=== PATIENT | male | born 1955 | race Caucasian/White ===

== ENCOUNTER 2018-10-20 09:23 | Inpatient (IN) ==
--- NOTE | 2018-08-26 15:22 | PAT Medication Instructions ---
Medication Instructions Date of Service August 26, 2018 Home Medications atorvastatin 10 mg PO QAM carvedilol 6.25 mg PO QAM lisinopril 5 mg PO QAM metformin 1,000 mg PO QAM DO NOT take the morning of surgery lisinopril 5 mg PO QAM metformin 1,000 mg PO QAM Take morning of surgery With a small sip of water, OTHERWISE NOTHING TO EAT OR DRINK AFTER MIDNIGHT: atorvastatin 10 mg PO QAM carvedilol 6.25 mg PO QAM Other Notes If you have any questions please call us at [phone] or [phone] or [phone] or [phone]
--- NOTE | 2018-08-27 13:59 | Anesthesiology Consultation ---
Date of Service August 27, 2018 Assessment & Plan (1) Encounter for pre-operative examination: Plan: CHECK BSG AM DOS Chart Review Chart Review: Acceptable Risk for Surgery and Patient seen in Pre Admission Testing Teaching & Discussion Instructed NPO after midnight before surgery, except medications with 15 cc of water. Medication instructions provided according to the PAT guidelines. History Surgery Operation Date: 10/20/18 10:40 Proposed Procedures p Right Total Shoulder Arthroplasty versus [place] Total Shoulder Arthroplasty - Soren Hernandez MD Height/Weight Height: 5 ft 10 in Weight: 119.3 kg Allergies Allergy/AdvReac Type Severity Reaction Status Date / Time No Known Allergies Allergy Verified 08/19/18 11:14 Medications Home Medications Medication Instructions Recorded Confirmed Last Taken atorvastatin 10 mg PO QAM 08/19/18 08/19/18 Unknown carvedilol 6.25 mg PO QAM 08/19/18 08/19/18 Unknown lisinopril 5 mg PO QAM 08/19/18 08/19/18 Unknown metformin 1,000 mg PO QAM 08/19/18 08/19/18 Unknown Past Medical History Medical History Diabetes mellitus, type 2 NIDDM H/O methicillin resistant Staphylococcus aureus Per patient was cleared via nasal swabs [address] [facility], infection control made aware. Hearing deficit Hyperlipidemia Hypertension Obesity Past Family History Family History Mother Family history of diabetes mellitus Past Surgical History Surgical History History of amputation of finger of left hand History of ankle surgery RT History of appendectomy History of cardiac cath 2008 - [facility] - failed stress test - no stents/angioplasty - does not follow w/ cardiology at present (last saw dr. bloom 4 years ago) History of repair of rotator cuff RT History of tonsillectomy History of total knee replacement BL Past Anesthesia History No Hx of Anesthesia Complications and No Family Hx of Anesthesia Complications History of PONV No Motion Sickness Screening History of Motion Sickness: No Social History Smoking Status: Never smoker Do You Dip or Chew Tobacco: No (quit 1 1/2 years ago) Hx Alcohol Use: Yes Alcohol type: beer alcohol intake frequency: a few times a month Hx Substance Use: No substance use type: does not use Exercise / Class Metabolic Activity II 4-5 Yardwork/Stairs/Walk up hill (Denies CP or SOB with stairs, does frequently at home) Review of Systems Pt denies any recent chest pain, shortness of breath, palpitations, cough, fever or URI. Physical Exam Vital Signs BP: 126/82 P: 72bpm SPO2: 93% RA T: 98.0 R: 12 ENMT Mouth: + dentures (partial upper); no dental restorations, no chipped teeth and no loose teeth Thyromental Distance: > or= 3.5 Finger Breadths (3.5) Mallampati Class: III Neck + thick neck; neck extension not limited Respiratory normal respiratory effort Auscultation: lungs clear to auscultation bilaterally Cardiovascular Rate/Rhythm: regular rate and regular rhythm Heart Sounds: no murmur Vessels: no carotid bruit Testing Electrocardiogram Date: 08/27/18 Findings: + NSR @ (73) SR with PACs, otherwise normal. Chest X-Ray Date: 08/27/18 Findings: + NAD Laboratory Results 08/27/18 14:10 08/27/18 14:10 Blood Type A Positive 08/27/18 14:10 Antibody Screen NEGATIVE 08/27/18 14:10 PT 10.6 Seconds (9.0-12.0) 08/27/18 14:10 INR 1.1 (0.9-1.1) 08/27/18 14:10 APTT 27.1 Seconds (21.0-31.0) 08/27/18 14:10 Hemoglobin A1c 6.0 % (4.5-5.6) H 08/27/18 14:10
--- NOTE | 2018-08-27 14:53 | XRay Report ---
XR chest Pre-admission PA/Lat HISTORY: Preop. COMPARISON: None. FINDINGS: The lungs are clear. Cardiac silhouette is normal in size. No pleural effusions. No pneumot horax. Mildly tortuous thoracic aorta. Mild S-shaped scoliosis of the thoracolumbar spine. Advanced d egenerative changes within the right shoulder. IMPRESSION: No acute process. Electronically signed by: Omid Owen M.D. 08/27/2018 2:52 PM
[2018-08-27 15:45] LABS: Basophils # (auto) 0.03 K/uL (0-0.2); Basophils % (auto) 0.5 %; Eosinophils # (auto) 0.18 K/uL (0-0.5); Eosinophils % (auto) 3.3 %; Hematocrit (blood only) 40.3 % (42-52); Hemoglobin 13.3 g/dL (14.0-18.0); Immature Granulocytes # (auto) 0.01 K/uL (0.00-0.02); Immature Granulocytes % (auto) 0.2 %; Lymphocytes # (auto) 1.39 K/uL (1.2-3.4); Lymphocytes % (auto) 25.5 %; Mean Corpuscular Volume 89.8 fL (80-100); Monocytes # (auto) 0.45 K/uL (0.11-0.59); Monocytes % (auto) 8.2 %; Neutrophils % (auto) 62.3 %; Platelet Count 265 K/uL (130-400); RDW Coefficient of Variation 13.1 % (11.5-14.5); RDW Standard Deviation 42.7 fL (36.4-46.3); Red Blood Count 4.49 M/uL (4.7-6.1); White Blood Count 5.46 K/uL (4.8-10.8)
[2018-08-27 15:59] LABS: Albumin Level 3.8 gm/dl (3.4-5.0); BUN Creatinine Ratio 16.7 (10-20); Calcium 9.1 mg/dl (8.5-10.1); Creatinine Clr Calc Pharmacy 88.6 ml/min; Est GFR (African American) 82.7; Est GFR (Non-African American) 71.4; Potassium 4.5 mmol/L (3.5-5.1)
[2018-08-27 16:00] LABS: INR 1.1 (0.9-1.1); Partial Thromboplastin Time 27.1 Seconds (21.0-31.0); Prothrombin Time 10.6 Seconds (9.0-12.0)
[2018-08-28 06:59] LABS: Estimated Average Glucose 126 mg/dl
--- NOTE | 2018-10-19 16:56 | History and Physical Report ---
DATE OF ADMISSION: 10/20/2018 CHIEF COMPLAINT: Chronic right shoulder pain. HISTORY OF PRESENT ILLNESS: This is a 62-year-old male patient of Dr. Walker, complaining of chronic right shoulder pain, longstanding, now progressively getting worse. The patient failed conservative treatment and has been diagnosed with end-stage osteoarthritis per clinical and radiographic exams. The patient wished to proceed with a right total shoulder arthroplasty. PAST MEDICAL HISTORY: Hypertension, hypercholesterolemia, diabetes mellitus, obesity, history of hepatitis. SOCIAL HISTORY: Nonsmoker, occasional drinker. PAST SURGICAL HISTORY: Tonsillectomy, appendectomy, bilateral knee replacements, ankle surgery, ring finger surgery, rotator cuff on the right. FAMILY HISTORY: Noncontributory. REVIEW OF SYSTEMS: Chronic right shoulder pain and decreased function. Otherwise, denies any shortness of breath, chest pain, nausea, vomiting or any other joint complaints. MEDICATIONS: Lisinopril 5 mg daily, carvedilol 6.25 mg twice daily, atorvastatin 10 mg daily, metformin 1000 mg daily. ALLERGIES: No known drug allergies. PHYSICAL EXAMINATION: GENERAL: Well-developed, well-nourished 62-year-old male in no acute distress. He is alert and oriented x3 and pleasant. HEENT: Normocephalic, atraumatic. Extraocular motions are intact. Pupils are equal, reactive to light. HEART: Regular rate and rhythm, no murmurs appreciated. LUNGS: Clear. ABDOMEN: Soft and nontender. Bowel sounds present. EXTREMITIES: Right shoulder limited range of motion of 0-90. He does have pain with crepitation with range of motion. He has got atrophy. He has 4/5 strength. NEUROLOGIC: Neurovascularly, he is intact in his right upper extremity. DIAGNOSES: Right shoulder end-stage osteoarthritis, hypertension, hypercholesterolemia, diabetes mellitus, obesity, history of hepatitis. PLAN: The patient was advised of his diagnosis. Indications, risks, benefits, postop course have all been reviewed. The patient wished to proceed with a right total shoulder arthroplasty. Necessary consent forms, preoperative testing clearances will be obtained.
[~2018-10-20 09:23] MED LIST: ACETAMINOPHEN 500 MG TAB PO SCH; CEFAZOLIN 2000MG 2,000 MG/15 ML SYR IV SCH; CeleBREX 200 MG CAP PO SCH; DEXAMETHASONE SOD INJ 4 MG/ML VIAL ONE; FAMOTIDINE 20 MG TAB PO SCH; GABAPENTIN 300 MG x 2 PO SCH; LIDOCAINE HCL 2% 2 ML VIAL/AMP(20MG/ML) INFIL ONE; LR 15ML/HR IV SCH; METOCLOPRAMIDE HCL 10 MG TABLET PO SCH; MIDAZOLAM HCL 1 MG/ML 2ML VIAL ONE; ONDANSETRON INJ 2 MG/ML 2 ML VIAL ONE; PROPOFOL IV EMULSION 10 MG/ML 20 ML VIAL IV ONE; ROCURONIUM BROMIDE 10 MG/ML 5 ML VIAL ONE; ROPIVACAINE 0.5% 5 MG/ML 30 ML VIAL ONE; dexAMETHasone 4 MG TAB PO SCH; fentaNYL citrate 100 MCG/2 ML VIAL ONE
--- NOTE | 2018-10-20 10:08 | History & Physical Bridge Note ---
Date of Service October 20, 2018 History & Physical Bridge Note I have examined the patient, reviewed the History & Physical and in the interval since the performance of the History & Physical I have noted the following changes of clinical significance: no changes noted
[2018-10-20] MEDS ORDERED: BACITRACIN INJ 50,000 UNIT VIAL ONE (10:43)
[2018-10-20] MEDS ORDERED: EPINEPHrine HCL INJ 1 MG/ML 30ML ONE (10:43)
[2018-10-20] MEDS ORDERED: ATROPINE SULFATE 0.1 MG/ML 10ML SYR IV PRN (10:56)
[2018-10-20] MEDS ORDERED: HYDROmorphone INJ 2 MG/ML SYR/VIAL IV PRN (10:56)
[2018-10-20] MEDS ORDERED: ONDANSETRON INJ 2 MG/ML 2 ML VIAL IV PRN ×2 (10:56→17:04)
[2018-10-20] MEDS ORDERED: ePHEDrine sulfate 50 MG/ML AMP IV PRN (10:56)
[2018-10-20] MEDS ORDERED: DEXAMETHASONE SOD INJ 4 MG/ML VIAL IV PRN (10:56)
[2018-10-20] MEDS ORDERED: LIDOCAINE HCL 2% MPF (LOCAL) 5 ML VIAL INFIL ONE (11:07)
[2018-10-20] MEDS ORDERED: ROCURONIUM BROMIDE 10 MG/ML 5 ML VIAL ONE (12:01)
--- NOTE | 2018-10-20 15:55 | Post Operative Brief Note ---
Immediate Post Op Note v1 Date of Surgery October 20, 2018 Pre & Post Diagnosis Operation Date: 10/20/18 12:00 Pre-Op Diagnosis: Right Shoulder Degenerative Joint Disease, severe advanced with multiple loose bodies Post-Op Diagnosis: Right Shoulder Degenerative Joint Disease, severe advanced multiple loose bodies chronic biceps tendinopathy. Procedure Operation Date: 10/20/18 12:00 Actual Procedures p Right Total Shoulder Arthroplasty, cemented Bicep tendesis,posterior capsular shift, removal of multiple loose bodies (Right) - Soren Hernandez MD Surgeon Soren Hernandez MD [employer]terminator [employer] Richard SOARES Estimated Blood Loss 200 Findings Consistent with Post-Op Diagnosis Specimens Humeral head Drains Hemovac Drain (dual) Anesthesia Type General Regional Complications none Disposition Accompanied Patient To Recovery: No Disposition: Recovery Room Overlapping Procedure I was immediately available: during the entire case.
[2018-10-20] MEDS ORDERED: NEOSTIGMINE METHYLSULFATE 5 MG/5 ML SYR ONE (16:09)
[2018-10-20] MEDS ORDERED: ESMOLOL HCL INJ 10 MG/ML 10ML VIAL IV ONE (16:09)
[2018-10-20] MEDS ORDERED: GLYCOPYRROLATE 0.2 MG/ML VIAL ONE (16:09)
[2018-10-20] MEDS: fentaNYL citrate 100 MCG/2 ML VIAL IV PRN ×2 (16:13→16:18)
[2018-10-20] MEDS ORDERED: fentaNYL citrate 100 MCG/2 ML VIAL ONE (16:14)
--- NOTE | 2018-10-20 16:27 | Anesthesiology Progress Note ---
Date of Service October 20, 2018 Anesthesia Post Procedure Vital Signs Vital Signs: Temp Pulse Pulse Resp BP Pulse Ox 10/20/18 16:25 76 18 126/81 94 10/20/18 16:15 87 18 115/80 94 10/20/18 16:05 90 18 121/77 96 10/20/18 15:59 36.8 C 90 18 114/78 96 10/20/18 10:11 36.7 C 69 20 151/99 H 97 Pain Intensity Right Shoulder: Pain Intensity: 3 Notes Mental Status: alert / awake / arousable Patient Amnestic to Procedure: Yes Nausea / Vomiting: adequately controlled Pain: adequately controlled Airway Patency, RR, SpO2: stable & adequate BP & HR: stable & adequate Hydration State: stable & adequate Anesthetic Complications: no major complications apparent and Pt Satisfied with anesthetic care
[2018-10-20] MEDS ORDERED: METOCLOPRAMIDE HCL INJ 5 MG/ML 2 ML VIAL IV PRN (17:04)
[2018-10-20] MEDS ORDERED: BISACODYL 10 MG SUPP PR PRN (17:04)
[2018-10-20] MEDS ORDERED: HYDROmorphone INJ 0.5 MG/0.5 ML SYR IV PRN (17:04)
[2018-10-20] MEDS ORDERED: MAGNESIUM HYDROXIDE SUSP 30 ML UDC PO PRN (17:04)
[2018-10-20] MEDS ORDERED: NALOXONE HCL 0.4 MG/1 ML VIAL/CARP IV PRN (17:04)
[2018-10-20] MEDS ORDERED: PHARMACY GLYCEMIC MGMT CONSULT PRN (17:27)
--- NOTE | 2018-10-20 17:33 | XRay Report ---
RIGHT SHOULDER 2 VIEWS History: Right total shoulder arthroplasty. Postop. FINDINGS: The patient is status post a right total shoulder arthroplasty. The hardware is intact. No fracture or dislocation. Skin nathalie and surgical drains are in place. IMPRESSION: Right total shoulder arthroplasty. No evidence for hardware complication Electronically signed by: Omid Owen M.D. 10/20/2018 5:32 PM
[2018-10-20] MEDS ORDERED: GLUCOSE 40% GEL 15 GM TUBE PO PRN (18:00)
[2018-10-20] MEDS ORDERED: LANTUS PER UNIT CHARGE SQ ONE (18:00)
[2018-10-20] MEDS ORDERED: GLUCOSE 10 TABS/TUBE PO PRN (18:00)
[2018-10-20] MEDS ORDERED: CARBOHYDRATES FOR HYPOGLYCEMIA PO PRN (18:00)
[2018-10-20] MEDS ORDERED: DEXTROSE 50% 50 ML SYRINGE IV PRN (18:00)
[2018-10-20] MEDS ORDERED: GLUCAGON FOR INJ 1 MG VIAL IM PRN (18:00)
[2018-10-20] MEDS: SODIUM CHLORIDE 0.9% 1000ML 1,000 ML IV SCH ×2 (18:24→23:51)
[2018-10-20] MEDS: INSULIN ASPART 100 UNITS/ML 3 ML PEN SC SCH ×2 (18:40→21:16)
--- NOTE | 2018-10-20 19:05 | Pharmacy Report ---
Glycemic Control Consultation - Date of Service October 20, 2018 - Scope Scope: Glycemic Pharmacist consulted by Richard Villalta on 10-20-18 for glycemic control and to write orders per [facility] inpatient glycemic control protocol - Objective Weight: 117.753 kg Accuchecks BSG (last 24hrs): 10/20/18 10/20/18 09:51 16:09 POC Glucose 113 H 156 H HbA1c: Hemoglobin A1c 6.0 % (4.5-5.6) H 08/27/18 14:10 - Recent Pertinent Medications Outpatient Anti-diabetic Regimen: * metformin 1000 mg QAM * A1c = 6.0 % 08-27-18 Risk Factors for Insulin Resistance: * Steroids: Dxm 8 mg po preop, Dxm 4 mg IV * Recent Surgery: POD 0 * Diet: T2DM - Assessment & Plan Assessment & Plan: ASSESSMENT: * Patient is type 2 diabetic now s/p right shoulder arthroplasty. PMHx significant for htn, hld. Last A1C is 6.0 % from last month indicating excellent BSG control. * Received steroids preop and intraop therefore anticipate steroid induced hyperglycemic postop op ; will utilize basal/bolus dosing for BSG management. PLAN FOR INPATIENT GLYCEMIC CONTROL: * Pt is maintained on oral antidiabetic agents as an outpatient * Oral agents are not recommended for inpatient use d/t drug interactions, changing PO intake, and difficulty titrating for acute hyper/hypoglycemia. ADA recommends re-initiating outpatient oral agents 1-2 days prior to discharge if/when appropriate if they were held on admission. * Will hold oral agents for admission and utilize SQ basal bolus insulin regimen which is the recommended regimen for inpatient glycemic control. * Will initiate weight based insulin dosing for insulin porsche patient and titrate based on BSG trends. * Basal insulin * Lantus 23 units x 1 postop (~0.2 units/kg) * Bolus insulin * NovoLog per scale ACHS or Q6hrs while NPO * Goal Range: Low 110 mg/dL - High 140 mg/dL * Correction Factor: 15 mg/dL/unit * Nutritional / Prandial insulin per carb ratio of 1 unit per 6 grams CHO consumed * Please note that the plan above was derived based on current level of insulin resistance and hospital stress. These recommendations are appropriate for inpatient admission only. Plan of care upon discharge will need to be reassessed to avoid potential outpatient hypo/hyperglycemia. Thank you.
[2018-10-20] MEDS: DOCUSATE SODIUM 100 MG CAP PO SCH (20:09)
[2018-10-20] MEDS: ASPIRIN 81 MG ECTAB PO SCH (20:09)
[2018-10-20] MEDS: SENNA 8.6 MG TAB PO SCH (20:09)
[2018-10-20] MEDS: CEFAZOLIN 2000MG 2,000 MG/15 ML SYR IV SCH (20:09)
[2018-10-20] MEDS: ACETAMINOPHEN 500 MG TAB PO SCH (21:16)
[2018-10-20] MEDS: TRAMADOL HCL 50 MG TABLET PO PRN (22:25)
[2018-10-21] MEDS: INSULIN ASPART 100 UNITS/ML 3 ML PEN SC SCH ×6 (00:54→22:13)
--- NOTE | 2018-10-21 02:12 | Operative Report ---
DATE OF OPERATION: 10/20/2018 INDICATION FOR PROCEDURE: The patient is a 62-year-old male with chronic osteoarthritis of his right shoulder, his dominant arm. He has had progressive disability over time where he has very little function at all in his right shoulder due to advanced osteoarthritis. Radiographs demonstrate he has [id number] glenohumeral joint flattening and inferior humeral osteophyte, multiple loose bodies. Clinically, he has very limited range of motion. CAT scan demonstrates significant posterior glenoid bone loss and some medial glenoid bone loss with B2 glenoid. Multiple loose bodies and large osteophytes. PREOPERATIVE DIAGNOSES: Severe end-stage osteoarthritis, right shoulder glenohumeral joint with multiple loose bodies with bone loss of humerus and glenoid. POSTOPERATIVE DIAGNOSES: Same including chronic biceps tendinopathy and posterior capsular laxity due to chronic subluxation posteriorly. PROCEDURE: Right total shoulder arthroplasty including biceps tenodesis, posterior capsular shift, and removal of multiple loose bodies. SURGEON: Soren Hernandez MD FIELD HEALTH OFFICER: Richard Villalta PA-C ANESTHESIA: Regional block and general. ESTIMATED BLOOD LOSS: 200 mL. DRAINS: Two Hemovacs. COMPLICATIONS: None. OPERATIVE PROCEDURE: The patient was taken to the operating room, anesthetized under regional block and general anesthetic. He had TEDs and SCDs, placed in the 40-degree beachchair position on the operating room table. He was translated to the right side of the bed so his right shoulder could be manipulated off the bed as necessary. A towel was placed under the medial border of his right scapula. A foam headrest was placed. Protective eyewear was placed. His right shoulder was examined under anesthesia. He had 60 degrees of forward elevation, 60 degrees of abduction, and -10 degrees of external rotation. He was moderately obese. His right shoulder was then sterilely prepped and draped in a sterile fashion using ChloraPrep. An anterior deltopectoral approach was performed. Skin was incised sharply. Subcutaneous flaps were elevated. The cephalic vein was dissected out and retracted laterally with the deltoid. The pectoralis was retracted medially. The upper centimeter of the pectoralis was released for inferior exposure. The biceps tendon was identified and tenodesed to the pectoralis tendon with [id number] #2 FiberWire sutures. The biceps tendon sheath was opened proximally and there were large bicipital spurs completely bridging across the biceps tendon causing stenosis. The spurs were resected and the proximal biceps was resected. Bicipital large spurs were resected. The scarred clavipectoral fascia was released at the lateral margin of the conjoint tendon up to the CA ligament which was preserved. There was scar tissue in the rotator interval and this was released. The patient had no external rotation. His shoulder was posteriorly subluxed. This made a tight exposure anteriorly. I removed some of the soft tissue and bursa between the conjoint tendon and subscapularis tendon, so we could fully visualize the subscapularis tissue. The rotator cuff was intact. Subscapularis was intact. The circumflex vessels were identified, tied off with silk ties and cauterized laterally. The rotator interval was opened up and extended down to the glenoid and laterally to the biceps tendon sheath area. Then starting at the bicipital groove, I did a subperiosteal dissection and a gradual release in the subscapularis tendon until we were able to get to the neck of the humerus. The subscapularis muscle fibers were first split at the level of the circumflex vessels leaving a small cuff of tissue to protect the axillary nerve inferiorly. I used a Kitner elevator to reflect the soft tissue off the capsule and identified the axillary nerve with a tug test and placed a blunt Hohmann retractor between the axillary nerve and the capsule. Then I took the rest of the capsule down off the neck gradually exposing a very large inferior humeral osteophyte. I readjusted the retractors and used artist chisels to remove the very large osteophytes. I then made sure the capsule was released off the neck of the humerus for exposure. I removed osteophytes posteriorly and superiorly around the articular surface and laterally adjacent to the lesser tuberosity as well as all the large spurs at the bicipital groove. The humeral head was essentially locked in position, so was difficult to dislocate and the humeral head was flattened out significantly. So there was bone loss in the humeral head. There was eburnated bone. No articular cartilage remaining. At this time, I used a Fukuda retractor to retract the humeral head posteriorly and then released the capsule anteriorly under direct visualization down to the glenoid, released the capsule off the anterior glenoid and the rotator interval to meet that creating 360 degrees in the subscapularis release. The patient had a very large bone spur of glenoid anteriorly. We left this in place initially because we had a custom guide made with CT scan guided blue print templating from Keri to place appropriate position of our guide pin in the glenoid. To further expose the glenoid, the glenoid labrum was resected circumferentially. The biceps was released off the superior glenoid and resected. Superior labrum was resected. There were multiple loose bodies. Lodged in the joint was about a 3.5 x 2 cm large loose body that was first removed and there were multiple posterior loose bodies in the capsule varying in sizes from 2 cm to 3 mm. We removed multiple loose bodies using a pituitary rongeur and a Dylon. Then with the axillary nerve protected inferiorly with the blunt Hohmann retractor, we released the capsule with electrocautery on bone anterior inferiorly, posterior inferiorly, using a Cai posterior inferiorly to get exposure of the glenoid. At this time, the humerus was re-exposed with extension and external rotation. Then I did anatomic cut resecting the articular surface at about 20 degrees retroversion. The humeral head was removed and with the humeral head exposed, I chose to use the Simpliciti total shoulder replacement system for the humeral head and the Perform CortiLoc glenoid with augmentation for the glenoid. This was chosen based on preoperative templating with the CT scan. After all the osteophytes were removed around the humerus, we sized the humerus initially for a 50 implant and we placed our central drill hole, used the reamer followed by the Maddie punch and then the bone cut protector. Then with further retraction, we retracted the humerus posterior to the glenoid and placed on the custom cutting guide, which had a good fit. We drilled our central drill hole, drilled our accessory drill hole for the Des reamer and then went ahead and first resected some of the large anterior osteophyte and then reamed for the large 40 radius glenoid component. We reamed the paleo portion of the glenoid initially, which was 50% of the glenoid at its normal version. Then went ahead and placed on the Des reamer and we had to adjust this to a 35-degree augment because of the marked bone loss. We got good contact with that reamer, then put our trials in place which were satisfactory fit and then went ahead and drilled peripheral peg holes, central peg hole for the implant trial reduction and then irrigated this out copiously, packed the drill holes with epinephrine-soaked tampons while we mixed the Palacos G cement with vacuum mixing. Then the peripheral peg holes were cemented back and the implant was cemented and the central peg was press fit medially. The final implant was the large 40 radius right 35-degree augmented CortiLoc Perform glenoid component. We held this in place until the cement cured. All excess cement was cleared. The fixation was solid. Then attention was taken back to the humeral head. Then we did a trial reduction and the 50 was too loose as the patient dislocated posteriorly with forward elevation, so we went up to a 52 mm ligament balancing head with 21 mm diameter that improved but it was still subluxing posteriorly, so I had to remove that implant and retract humeral head posteriorly and we had to do a shift in posterior capsule with [id number] #1 Vicryl sutures. After that was completed, the drill holes were made in the bicipital groove and transosseous #5 FiberWire sutures x3 were placed for repair of the subscapularis. We had to medialize some of the repair to the neck area because of the contracture preop and building up head size. The humeral head was then re-exposed. Then after irrigation, the Simpliciti nucleus size 3 was impacted in position. I did put some additional bone graft from the humeral head to make a tighter press fit for the implant and used some bone graft to fill some defects from retraction that were in the cut surface until it was fully flush. We upped the size 3 nucleus slightly proud and then placed on the Simpliciti soft tissue balancing humeral head, 52 x 21 mm and impacted that Graham taper into the nucleus and the nucleus fully into the bone until it was fully seated compressing the bone graft and getting a very stable fixation. Then I reduced this to the glenoid and now the humerus was stable through range of motion passively. There was some tension at about 80 degrees of forward elevation, so I chose to restrict that motion postop in rehabilitation. The posterior shuck was stable less than 50% after the shaft. The subscapularis was then repaired using the #5 FiberWire sutures placed in Kel-Ant suture technique. Then I used some [id number] sutures with #2 FiberWire closing the lateral rotator interval and then we placed 1 suture with #2 FiberWire with another transosseous suture through the bicipital groove bone to get some further fixation of the lower subscapularis with another Kel-Ant suture. That repair was secure through about 15 degrees of external rotation, between 80 and 90 degrees of abduction, 80 and 90 degrees of forward elevation in the plane of the glenoid and there was no subluxation. Humerus was well aligned with the glenoid component. At this time, the pectoralis was repaired with [id number] #2 FiberWire sutures passing the sutures back to the biceps tendon to reinforce the tenodesis. Then the two Hemovac drains were placed, one was placed deep into the deltoid, one was placed under the conjoint tendon and then the deltopectoral interval was repaired with [id number] #1 Vicryl sutures and then the subcutaneous tissues were closed with interrupted 2-0 Vicryl and the skin was closed with nathalie and sterile dressings were applied and a pillow sling immobilizer was placed to keep the arm in neutral external rotation to take tension off posterior capsular shift. The patient had about 200 mL of blood loss and tolerated the procedure well. RODGER Montes De Oca was my interior design assistant, functioned as interior design assistant throughout the entire procedure. He assisted in patient positioning, prepping, draping, arm positioning, soft tissue retraction, instrument management, and performed the subcutaneous skin closure, sling application, and will participate in postoperative care of the patient. I attest to the content of the Intraoperative Record and any orders documented therein. Any exceptions are noted below. TERRENCE
[2018-10-21] MEDS: CEFAZOLIN 2000MG 2,000 MG/15 ML SYR IV SCH (04:52)
[2018-10-21] MEDS: ACETAMINOPHEN 500 MG TAB PO SCH ×3 (04:56→21:16)
[2018-10-21 05:56] LABS: Hematocrit (blood only) 34.4 % (42-52); Hemoglobin 11.5 g/dL (14.0-18.0); Immature Granulocytes # (auto) 0.04 K/uL (0.00-0.02); Immature Granulocytes % (auto) 0.3 %; Lymphocytes # (auto) 0.57 K/uL (1.2-3.4); Lymphocytes % (auto) 4.4 %; Mean Corpuscular Hgb Conc 33.4 g/dL (32-36); Mean Platelet Volume 9.3 fL (7.4-10.4); Monocytes # (auto) 0.62 K/uL (0.11-0.59); Monocytes % (auto) 4.8 %; Neutrophils # (auto) 11.59 K/uL (1.4-6.5); Neutrophils % (auto) 90.5 %; Platelet Count 252 K/uL (130-400); RDW Coefficient of Variation 13.1 % (11.5-14.5); RDW Standard Deviation 41.9 fL (36.4-46.3); Red Blood Count 3.91 M/uL (4.7-6.1); White Blood Count 12.82 K/uL (4.8-10.8)
[2018-10-21 06:32] LABS: BUN Creatinine Ratio 17.7 (10-20); Calcium 8.5 mg/dl (8.5-10.1); Creatinine Clr Calc Pharmacy 74.4 ml/min; Est GFR (African American) 67.5; Est GFR (Non-African American) 58.2; Potassium 4.2 mmol/L (3.5-5.1)
--- NOTE | 2018-10-21 08:02 | Anesthesiology Progress Note ---
Date of Service October 21, 2018 Anesthesia Post Procedure Vital Signs Vital Signs: Temp Pulse Pulse Pulse Resp BP Pulse Ox 10/21/18 07:58 36.8 C 72 16 135/87 92 10/21/18 03:42 36.8 C 76 14 108/73 93 10/20/18 23:43 36.6 C 75 14 141/83 H 91 10/20/18 20:04 95 H 16 115/80 95 10/20/18 18:28 84 16 100/69 95 10/20/18 17:19 90 16 118/81 93 10/20/18 16:50 36.6 C 88 16 115/79 94 10/20/18 16:35 36.4 C L 81 18 119/80 94 10/20/18 16:25 76 18 126/81 94 10/20/18 16:15 87 18 115/80 94 10/20/18 16:05 90 18 121/77 96 10/20/18 15:59 36.8 C 90 18 114/78 96 10/20/18 10:11 36.7 C 69 20 151/99 H 97 Notes Mental Status: alert / awake / arousable and participated in evaluation Patient Amnestic to Procedure: Yes Nausea / Vomiting: adequately controlled Pain: adequately controlled Airway Patency, RR, SpO2: stable & adequate BP & HR: stable & adequate Hydration State: stable & adequate Anesthetic Complications: no major complications apparent and Pt Satisfied with anesthetic care
--- NOTE | 2018-10-21 08:02 | Orthopedic Progress Note ---
Date of Service October 21, 2018 Assessment & Plan (1) DJD of right shoulder: POD #1, Right shoulder TSA, biceps tenodesis, posterior capsular shift, removal loose bodies. PT/ OT D/C planning- Home with OPPT Subjective POD #1, Doing well with the shoulder, states he is having some voiding issues, states this always occurs after anesthesia, has been straight cathed since surgery. Denies SOB, CP, N/V, shoulder pain controlled well. Physical Exam Vital Signs (Past 24 Hours): Last Vital Signs Temp 36.8 C 10/21/18 03:42 Pulse 76 10/21/18 03:42 Resp 14 10/21/18 03:42 BP 108/73 10/21/18 03:42 Pulse Ox 93 10/21/18 03:42 Physical Exam: Right shoulder dressings/ drain c/d/i, no drainage, fingers mobile, A&Ox3.
[2018-10-21] MEDS ORDERED: INSULIN GLARGINE SOLOSTAR 100 UNITS/ML 3 ML PEN SC SCH ×2 (09:00→21:00)
[2018-10-21] MEDS: CARVEDILOL 6.25 MG TAB PO SCH (09:07)
[2018-10-21] MEDS: MULTIVITAMIN TAB PO SCH (09:07)
[2018-10-21] MEDS: ASPIRIN 81 MG ECTAB PO SCH ×2 (09:07→21:09)
[2018-10-21] MEDS: LISINOPRIL 5 MG TAB PO SCH (09:07)
[2018-10-21] MEDS: ATORVASTATIN 10 MG TAB PO SCH (09:08)
[2018-10-21] MEDS: DOCUSATE SODIUM 100 MG CAP PO SCH ×2 (09:18→21:13)
[2018-10-21] MEDS: TRAMADOL HCL 50 MG TABLET PO PRN ×2 (09:18→21:13)
[2018-10-21] MEDS: TAMSULOSIN HCL 0.4 MG CAP PO SCH ×2 (09:20→21:09)
--- NOTE | 2018-10-21 12:05 | Urology Consultation ---
Date of Consultation October 21, 2018 Assessment & Plan (1) Postoperative urinary retention: Started on Tamsulosin, no spontaneous void requiring multiple straight cath. Will coordinate Parker insertion. Discussed with patient, Parker to remain in [facility] x 7-10 days. Parker care reviewed. Will coordinate trial of void at our outpatient office. Patient encouraged to contact our outpatient office at [phone] with any catheter questions. Continue Tamsulosin QHS. Thank you for allowing us to participate in the care of this patient. Please contact our service with any additional questions or concerns. History of Present Illness Reason for Consultation: Post op urinary retention Attending Physician: Soren Hernandez MD History of Present Illness 62YO male POD #1 s/p shoulder surgery with urinary retention. Unfortunately patient has not been able to void spontaneously since anesthesia. He has been started on Tamsulosin and has required straight cath. He reports knee surgery ~10 years ago and required a prolonged Parker placement then. He has never seen a urologist. He takes no urinary medications at home. No hematuria. Reports that his baseline urinary pattern is somewhat bothersome, nocturia x 3-4 and a slowing stream over the years. He reports feeling well today. Is up in chair. Seen with at bedside. Allergies Allergy/AdvReac Type Severity Reaction Status Date / Time No Known Allergies Allergy Verified 10/20/18 10:04 Home Medications Home Medications Medication Instructions Recorded Confirmed Type atorvastatin 10 mg PO QAM 08/19/18 10/20/18 History carvedilol 6.25 mg PO QAM 08/19/18 10/20/18 History lisinopril 5 mg PO QAM 08/19/18 10/20/18 History metformin 1,000 mg PO QAM 08/19/18 10/20/18 History Patient History Medical History Diabetes mellitus, type 2 NIDDM H/O methicillin resistant Staphylococcus aureus Per patient was cleared via nasal swabs 2008 [facility], infection control made aware. Hearing deficit Hyperlipidemia Hypertension Obesity Surgical History History of amputation of finger of left hand History of ankle surgery RT History of appendectomy History of cardiac cath 2008 - [facility] - failed stress test - no stents/angioplasty - does not follow w/ cardiology at present (last saw dr. bloom 4 years ago) History of repair of rotator cuff RT History of tonsillectomy History of total knee replacement BL Family History Mother Family history of diabetes mellitus Social History Communication Ability: Effective Beliefs That Will Affect Care: None marital status: Current Living Situation: Spouse Other Information That Helps Us Care for You: No Feels Safe at Home: Yes Safety Concerns: Feels Safe At This Time Smoking Status: Never smoker Hx Alcohol Use: Yes Hx Substance Use: No Review of Systems Constitutional: no fever and no chills Eyes: no problem reported hard of hearing Respiratory: no dyspnea Cardiovascular: + edema (bilateral LE); no chest pain Gastrointestinal: no abdominal pain, no bloating, no nausea and no vomiting Genitourinary (Male): + difficulty urinating; no hematuria R shoulder immobilized Neurologic: no tingling and no numbness Psychiatric: no problem reported Physical Exam Vital Signs (Past 24 Hours): Last Vital Signs Temp 36.6 C 10/21/18 11:37 Pulse 72 10/21/18 11:37 Resp 16 10/21/18 11:37 BP 124/82 10/21/18 11:37 Pulse Ox 92 10/21/18 11:37 Constitutional: WD/WN, vitals as above + obese ENMT: Ears: + hearing impairment (hard of hearing) Neck: normal visual inspection Respiratory: normal respiratory effort; does not use accessory muscles Cardiovascular: Vessels: no JVD Extremities: + edema (bilateral LE, wearing teds) Gastrointestinal (Abdomen): Percussion/Palpation: abdomen soft; abdomen nontender Musculoskeletal: R shoulder immobilized Psychiatric: A+Ox3, euthymic affect
--- NOTE | 2018-10-21 12:30 | Pharmacy Report ---
Glycemic Control Progress Note - Date of Service October 21, 2018 - Scope Glycemic Pharmacist consulted for glycemic control to write orders per [facility] inpatient glycemic control protocol. - Objective Accuchecks BSG(last 24 hours):: 10/20/18 10/20/18 10/20/18 16:09 21:07 23:59 Glucose POC Glucose 156 H 223 H 159 H 10/21/18 10/21/18 10/21/18 04:12 05:26 08:23 Glucose 149 H POC Glucose 159 H 164 H 10/21/18 12:12 Glucose POC Glucose 120 H HbA1c:: Hemoglobin A1c 6.0 % (4.5-5.6) H 08/27/18 14:10 - Recent Pertinent Medications The patient is currently receiving: * Basal insulin: Lantus 23 units x 1 * Correctional Insulin: Novolog Correction per scale ACHS Goal Range: Low 110 mg/dL - High 140 mg/dL Correction Factor: 15 mg/dL/unit * Prandial insulin: Per carb ratio of 1 unit per 6 grams CHO consumed - Outpatient Anti-Diabetic Meds metformin 1 gm PO daily - Assessment & Plan ASSESSMENT: * See progress note from 10/20/18 for more background info, in short: * Pt receiving SQ basal bolus insulin regimen for hyperglycemia secondary to POD 1 for shoulder surgery plus steroids prior to and during surgery (8 mg before and 8 mg IV during of dexamethasone) * Patient is currently receiving an average of 35 units of insulin per day * 23 units of basal insulin * 12 units of prandial/correctional insulin * BSGs ranging 113 - 223 mg/dl over the past 24hrs (only one blood sugar over 223 mg/dL ... today's blood sugars have been fasting of 164 mg/dL and lunch of 120 mg/dL) * Changes needed to insulin regimen: * AM Fasting BSG = 164 mg/dl. This is slightly above goal range for patient based on inpatient targets and co-morbidities. Therefore will give Lantus 20 units x 1 (weight-based stress of 2) and will provide scale for this evening. Most likely secondary to steroids. * Post-prandial BSGs are trending downwards throughout the day (insulin stacking) therefore need to loosen CF/CR PLAN FOR INPATIENT GLYCEMIC CONTROL: * Oral Agents * Continue to hold outpatient oral diabetes medications - restart once kidney okay * Basal insulin * Lantus 20 units SQ x 1 then scale for this evening * Bolus insulin * NovoLog per scale ACHS or Q6hrs while NPO * Goal Range: Low 110 mg/dL - High 140 mg/dL * Correction Factor: 20 mg/dL/unit * Nutritional / Prandial insulin per carb ratio of 1 unit per 8 grams CHO consumed RECOMMENDATIONS FOR DISCHARGE: * Patient well controlled. Consider continuing home regimen as long as kidney function is okay. * Please note that the plan above was derived based on current level of insulin resistance and hospital stress. These recommendations are appropriate for inpatient admission only. Plan of care upon discharge will need to be reassessed to avoid potential outpatient hypo/hyperglycemia. Thank you.
--- NOTE | 2018-10-21 13:36 | Hospitalist Consultation ---
Date of Consultation October 21, 2018 Assessment & Plan (1) DJD of right shoulder: - S/p right shoulder arthroplasty, biceps tenodesis, posterior capsular shift and removal of loose bodies on 10/20, POD#1. - Pain control per primary team. - PT/OT - plan for home with home health. - Aspirin 81 mg BID for DVT ppx. (2) Urinary retention: - Developed urinary retention post op. - Urology consulted, sosa catheter placed. - Will need to maintain sosa cath for 7-10 days and f/u for voiding trial. - Continue Flomax qhs. (3) Elevated BUN: - BUN increased to 23 post op; baseline BUN is within normal limits. - Creatinine level also elevated above baseline, is 1.29. - May be related to urinary retention; consider dehydration as well. - Will continue ACEI today; consider holding if renal function trending up on labs tomorrow. - Monitor renal function qAM. (4) Acute anemia: - Hemoglobin decreased to 11.5; likely related to intraop bleeding. - Repeat CBC on 10/22/18. (5) Type II diabetes mellitus: - Hemoglobin A1C was 6.0 in Aug 2018. - Holding home Metformin; consulted pharmacy and placed on SSI coverage. - Can resume home Metformin at discharge as prescribed. (6) Hyperlipidemia: - Continue atorvastatin as prescribed. (7) Hypertension: - Continue Coreg 6.25 mg but should actually be TWICE DAILY, rather than once daily as entered in home med rec -continue Lisinopril 5 mg qAM (8) Obesity: - BMI 37.2. - Encourage weight loss and exercise. (9) DVT prophylaxis: - Aspirin BID. Dispo: Pt. is medically stable, will sign off. Please call with any questions. Will monitor repeat lab work in the morning. Supervising Physician Co-Signing Physician Notes PA Supervision Note: I did not personally see or examine the patient today, but I verified all devries points of RODGER Munson's assessment and plan with the following excepti ons/additions: None History of Present Illness Reason for Consultation: Medical Management Attending Physician: Soren Hernandez MD History of Present Illness Mr. Rogesr is a 62 year old male with past medical history of Type II DM, HLD, HTN, Obesity who presented for a planned right total shoulder arthroplasty in the setting of severe osteoarthritis. He is doing well, currently POD#1. Has mild pain in shoulder. Denies chest pain, SOB, N/V, constipation or diarrhea. Allergies Allergy/AdvReac Type Severity Reaction Status Date / Time No Known Allergies Allergy Verified 10/20/18 10:04 Home Medications Home Medications Medication Instructions Recorded Confirmed Type atorvastatin 10 mg PO QAM 08/19/18 10/20/18 History carvedilol 6.25 mg PO QAM 08/19/18 10/20/18 History lisinopril 5 mg PO QAM 08/19/18 10/20/18 History metformin 1,000 mg PO QAM 08/19/18 10/20/18 History acetaminophen [Pain Reliever] 1,000 mg PO Q8 30 Days #180 tab 10/22/18 Rx aspirin [Ecotrin Low Strength] 81 mg PO BID 30 Days #60 tab 10/22/18 Rx tamsulosin 0.4 mg PO HS 30 Days #30 cap 10/22/18 Rx tramadol 50 - 100 mg PO Q4H PRN #40 tab 10/22/18 Rx Patient History Medical History Diabetes mellitus, type 2 NIDDM H/O methicillin resistant Staphylococcus aureus Per patient was cleared via nasal swabs 2008 [facility], infection control made aware. Hearing deficit Hyperlipidemia Hypertension Obesity Surgical History History of amputation of finger of left hand History of ankle surgery RT History of appendectomy History of cardiac cath 2008 - [facility] - failed stress test - no stents/angioplasty - does not follow w/ cardiology at present (last saw dr. bloom 4 years ago) History of repair of rotator cuff RT History of tonsillectomy History of total knee replacement BL Family History Mother Family history of diabetes mellitus Social History Preferred Language: French Beliefs That Will Affect Care: None marital status: Current Living Situation: Spouse Other Information That Helps Us Care for You: No Feels Safe at Home: Yes Safety Concerns: Feels Safe At This Time Smoking Status: Never smoker Hx Alcohol Use: Yes Hx Substance Use: No Review of Systems 12 point R.O.S. negative unless specified above. Constitutional: no fever, no chills, no fatigue, no weakness and no anorexia Respiratory: no cough, no dyspnea and no wheezing Cardiovascular: no chest pain, no palpitations, no lightheadedness, no syncope and no edema Gastrointestinal: no abdominal pain, no nausea, no vomiting, no constipation and no diarrhea/loose stools Genitourinary (Male): + difficulty urinating Musculoskeletal: + joint pain Integumentary: no rash Neurologic: no headache(s) Allergy / Immunological: no rash Physical Exam Vital Signs (Past 24 Hours): Last Vital Signs Temp 36.6 C 10/21/18 11:37 Pulse 72 10/21/18 11:37 Resp 16 10/21/18 11:37 BP 124/82 10/21/18 11:37 Pulse Ox 93 10/21/18 11:37 Physical Exam: General: Pleasant male, in no acute distress. HEENT: NC/AT; PERRLA with EOMI; [place] conjunctiva, MMM. Neck: Supple and nontender Cardiac: RRR Lungs: CTA bilaterally Abdomen: Bowel normoactive X 4; Nontender to palpation Extremities: Warm. No edema present. Dressing in place over right shoulder with drain intact. Neuro: No focal weakness Skin: No rash Results & Data Laboratory Results 10/21/18 10/21/18 10/21/18 Range/Units 12:12 08:23 05:26 WBC (4.8-10.8) K/uL RBC (4.7-6.1) M/uL Hgb (14.0-18.0) g/dL Hct (42-52) % MCV (80-100) fL MCH (25-34) pg MCHC (32-36) g/dL RDW Std Deviation (36.4-46.3) fL RDW Coeff of Suraj (11.5-14.5) % Plt Count (130-400) K/uL MPV (7.4-10.4) fL Immature Gran % (Auto) % Neut % (Auto) % Lymph % (Auto) % Taylor % (Auto) % Eos % (Auto) % Baso % (Auto) % Immature Gran # (Auto) (0.00-0.02) K/uL Neut # (Auto) (1.4-6.5) K/uL Lymph # (Auto) (1.2-3.4) K/uL Taylor # (Auto) (0.11-0.59) K/uL Eos # (Auto) (0-0.5) K/uL Baso # (Auto) (0-0.2) K/uL Sodium 139 (136-145) mmol/L Potassium 4.2 (3.5-5.1) mmol/L Chloride 105 (98-107) mmol/L Carbon Dioxide 28 (21-32) mmol/L Anion Gap 6.0 (3-11) BUN 23 H (7-18) mg/dl Creatinine 1.29 (0.6-1.4) mg/dl Est Cr Clr Drug Dosing 74.4 ml/min Est GFR ( Amer) 67.5 Est GFR (Non-Af Amer) 58.2 BUN/Creatinine Ratio 17.7 (10-20) Glucose 149 H (70-99) mg/dl POC Glucose 120 H 164 H (70-99) Calcium 8.5 (8.5-10.1) mg/dl 10/21/18 10/21/18 10/20/18 Range/Units 05:26 04:12 23:59 WBC 12.82 H (4.8-10.8) K/uL RBC 3.91 L (4.7-6.1) M/uL Hgb 11.5 L (14.0-18.0) g/dL Hct 34.4 L (42-52) % MCV 88.0 (80-100) fL MCH 29.4 (25-34) pg MCHC 33.4 (32-36) g/dL RDW Std Deviation 41.9 (36.4-46.3) fL RDW Coeff of Suraj 13.1 (11.5-14.5) % Plt Count 252 (130-400) K/uL MPV 9.3 (7.4-10.4) fL Immature Gran % (Auto) 0.3 % Neut % (Auto) 90.5 % Lymph % (Auto) 4.4 % Taylor % (Auto) 4.8 % Eos % (Auto) 0.0 % Baso % (Auto) 0.0 % Immature Gran # (Auto) 0.04 H (0.00-0.02) K/uL Neut # (Auto) 11.59 H (1.4-6.5) K/uL Lymph # (Auto) 0.57 L (1.2-3.4) K/uL Taylor # (Auto) 0.62 H (0.11-0.59) K/uL Eos # (Auto) 0.00 (0-0.5) K/uL Baso # (Auto) 0.00 (0-0.2) K/uL Sodium (136-145) mmol/L Potassium (3.5-5.1) mmol/L Chloride (98-107) mmol/L Carbon Dioxide (21-32) mmol/L Anion Gap (3-11) BUN (7-18) mg/dl Creatinine (0.6-1.4) mg/dl Est Cr Clr Drug Dosing ml/min Est GFR ( Amer) Est GFR (Non-Af Amer) BUN/Creatinine Ratio (10-20) Glucose (70-99) mg/dl POC Glucose 159 H 159 H (70-99) Calcium (8.5-10.1) mg/dl 10/20/18 10/20/18 Range/Units 21:07 16:09 WBC (4.8-10.8) K/uL RBC (4.7-6.1) M/uL Hgb (14.0-18.0) g/dL Hct (42-52) % MCV (80-100) fL MCH (25-34) pg MCHC (32-36) g/dL RDW Std Deviation (36.4-46.3) fL RDW Coeff of Suraj (11.5-14.5) % Plt Count (130-400) K/uL MPV (7.4-10.4) fL Immature Gran % (Auto) % Neut % (Auto) % Lymph % (Auto) % Taylor % (Auto) % Eos % (Auto) % Baso % (Auto) % Immature Gran # (Auto) (0.00-0.02) K/uL Neut # (Auto) (1.4-6.5) K/uL Lymph # (Auto) (1.2-3.4) K/uL Taylor # (Auto) (0.11-0.59) K/uL Eos # (Auto) (0-0.5) K/uL Baso # (Auto) (0-0.2) K/uL Sodium (136-145) mmol/L Potassium (3.5-5.1) mmol/L Chloride (98-107) mmol/L Carbon Dioxide (21-32) mmol/L Anion Gap (3-11) BUN (7-18) mg/dl Creatinine (0.6-1.4) mg/dl Est Cr Clr Drug Dosing ml/min Est GFR ( Amer) Est GFR (Non-Af Amer) BUN/Creatinine Ratio (10-20) Glucose (70-99) mg/dl POC Glucose 223 H 156 H (70-99) Calcium (8.5-10.1) mg/dl
[2018-10-21] MEDS: OXYCODONE HCL IR 5 MG TAB (IMMEDIATE RELEASE) PO PRN ×3 (14:35→23:42)
[2018-10-21] MEDS: SENNA 8.6 MG TAB PO SCH (21:08)
[2018-10-22] MEDS: OXYCODONE HCL IR 5 MG TAB (IMMEDIATE RELEASE) PO PRN ×2 (04:53→11:16)
[2018-10-22] MEDS: ACETAMINOPHEN 500 MG TAB PO SCH (05:06)
[2018-10-22 06:21] LABS: Basophils # (auto) 0.01 K/uL (0-0.2); Basophils % (auto) 0.1 %; Eosinophils # (auto) 0.01 K/uL (0-0.5); Eosinophils % (auto) 0.1 %; Hematocrit (blood only) 32.4 % (42-52); Hemoglobin 10.7 g/dL (14.0-18.0); Immature Granulocytes # (auto) 0.02 K/uL (0.00-0.02); Immature Granulocytes % (auto) 0.2 %; Lymphocytes # (auto) 1.38 K/uL (1.2-3.4); Lymphocytes % (auto) 13.5 %; Mean Corpuscular Volume 89.3 fL (80-100); Mean Platelet Volume 9.3 fL (7.4-10.4); Monocytes # (auto) 1.07 K/uL (0.11-0.59); Monocytes % (auto) 10.4 %; Neutrophils # (auto) 7.77 K/uL (1.4-6.5); Neutrophils % (auto) 75.7 %; Platelet Count 237 K/uL (130-400); RDW Coefficient of Variation 13.4 % (11.5-14.5); RDW Standard Deviation 43.4 fL (36.4-46.3); Red Blood Count 3.63 M/uL (4.7-6.1); White Blood Count 10.26 K/uL (4.8-10.8)
[2018-10-22 06:25] LABS: BUN Creatinine Ratio 19.5 (10-20); Calcium 8.7 mg/dl (8.5-10.1); Creatinine Clr Calc Pharmacy 84.2 ml/min; Est GFR (African American) 78.3; Est GFR (Non-African American) 67.6; Potassium 3.9 mmol/L (3.5-5.1)
[2018-10-22] MEDS: ASPIRIN 81 MG ECTAB PO SCH (07:48)
[2018-10-22] MEDS: CARVEDILOL 6.25 MG TAB PO SCH (07:48)
[2018-10-22] MEDS: LISINOPRIL 5 MG TAB PO SCH (07:48)
[2018-10-22] MEDS: DOCUSATE SODIUM 100 MG CAP PO SCH (07:48)
[2018-10-22] MEDS: MULTIVITAMIN TAB PO SCH (07:49)
[2018-10-22] MEDS: ATORVASTATIN 10 MG TAB PO SCH (07:49)
[2018-10-22] MEDS: INSULIN ASPART 100 UNITS/ML 3 ML PEN SC SCH (07:51)
--- NOTE | 2018-10-22 07:56 | Orthopedic Progress Note ---
Date of Service October 22, 2018 Assessment & Plan (1) DJD of right shoulder: POD #2, Right shoulder TSA, biceps tenodesis, posterior capsular shift, removal loose bodies. PT/ OT D/C planning- Home with OOPT Parker placement for 7-10 days then follow up with urology as outpatient. Subjective POD #1, Doing well with the shoulder, states he is having some voiding issues, states this always occurs after anesthesia. Denies SOB, CP, N/V, shoulder pain controlled well. Urology consulted, Parker placed. Physical Exam Vital Signs (Past 24 Hours): Last Vital Signs Temp 36.6 C 10/22/18 07:29 Pulse 78 10/22/18 07:29 Resp 14 10/22/18 07:29 BP 124/73 10/22/18 07:29 Pulse Ox 93 10/22/18 07:29 Physical Exam: Right shoulder dressings c/d/i, no drainage, fingers mobile, sling in tact, A&Ox3.
--- NOTE | 2018-10-26 12:49 | Coding Query ---
CODING QUERY To promote full compliance with coding requirements relating to patient care, provider participation is requested in all cases of tanbark laborer uncertainty. Please assist us with the question(s) below: Coding Question(s): Please clarify below, in your clinical opinion, regarding the Postoperative Urinary Retention. ( x ) this was an Adverse Effect of Anesthesia ( ) this was a Postoperative Complication resulting from the Surgical Procedure ( ) Other: Please Specify Physician's Response(s): - this is an extremely common consequence of anesthesia. I do not feel it is a complication, but simply a known and common risk to having any surgery Thank you Nikky Felder Principal Diagnosis: "that condition established after study, to be chiefly responsible for occasioning the admission of the patient to the hospital for care." Co-Existing Principal Diagnosis: "when two or more diagnoses equally meet the criteria for principal diagnosis as determined by the circumstances of admission, diagnostic work up, and/or therapy provided, and the Alphabetic Index, Tabular List, or another coding guideline does not provide sequencing direction, any one of the diagnoses may be sequenced first." "When the physician has documented what appears to be a current diagnosis in the body of the record, but has not included the diagnosis in the final diagnostic statement, the physician should be asked whether the diagnosis should be added." (Source Coding [facility] 2 QTR90. p3-4) TERRENCE
--- NOTE | 2018-11-07 13:47 | Discharge Summary ---
CHIEF COMPLAINT: Chronic right shoulder pain. HISTORY OF PRESENT ILLNESS: This is a 62-year-old male patient of Dr. Hernandez'ta complaining of chronic right shoulder pain, longstanding, progressively getting worse. The patient has failed conservative treatment and was diagnosed with end-stage osteoarthritis per clinical and radiographic exams. The patient wished to proceed with a right total shoulder arthroplasty. PAST MEDICAL HISTORY: Hypertension, hypercholesterolemia, diabetes mellitus, obesity, and history of hepatitis. POSTOPERATIVE COURSE: The patient underwent a right total shoulder arthroplasty, biceps tenodesis and posterior capsular shift on 10/20/2018. He was followed closely with pain control, physical therapy and medical consultation. The patient did have some postoperative urinary retention. I started him on tamsulosin. He does have a history of this in the past with surgical procedures. Urologic consult was placed. They did place him with an indwelling catheter. The patient will keep it in and follow up with urology 7-10 days postoperatively. In the meantime, he will continue his tamsulosin. Otherwise, an uneventful postoperative course. PHYSICAL EXAMINATION: On discharge, right shoulder incision was clean, dry and intact. Chelsey were intact. Skin edges were approximated well. There was no redness or drainage. Fingers were mobile and sling was intact. Neurologically and neurovascularly he was intact in his right upper extremity. DIAGNOSES: Status post right total shoulder arthroplasty, biceps tenodesis and posterior capsular shift. Postoperative urinary retention. Hypertension, hypercholesterolemia, diabetes mellitus, obesity and a history of hepatitis. PLAN: The patient was discharged home with outpatient physical therapy. He will continue with preadmission medications with the addition of tamsulosin and pain medications. He will follow up with urology 7-10 days postoperatively. Per urology, he will keep an indwelling catheter until his postoperatively urologic appointment. He will follow up with Dr. Hernandez as scheduled as an outpatient.
== END 2018-10-22 11:15 | disposition home or self-care (01) | DRG 483 ==
LOC: ASU 09:23 → 3E 16:00

== ENCOUNTER 2022-10-13 08:04 | Inpatient (IN) ==
--- NOTE | 2022-10-07 13:32 | Anesthesiology Consultation ---
Date of Service October 07, 2022 Assessment & Plan (1) Encounter for pre-operative examination: - COVID screening: Per assessment on 10/07: No known COVID-19 positive contacts or current COVID-19 related symptoms. Travel screen negative. Patient vaccinated. Patient was Covid positive 08/26/22 ([facility] PCR) > head cold/headache (resolved) - Check BSG AM DOS - S/P Right TSA (10/20/18): Grade 2 view, MAC#4, ETT 7.5 + PNB at [facility] - PCP office visit (08/19/22): "Patient is medically optimized/cleared from a primary care perspective for pending orthopedic/spine surgery" Chart Review Chart Review: Acceptable Risk for Surgery and Patient NOT seen in Pre Admission Testing History Surgery Operation Date: 10/13/22 10:05 Proposed Procedures p L3-S1 Decompression and Fusion, Spinal Cord Monitoring - Kash Obrien DO Height/Weight Height: 5 ft 10 in Weight: 113.398 kg Allergies Allergy/AdvReac Type Severity Reaction Status Date / Time No Known Allergies Allergy Verified 10/07/22 13:07 Medications Home Medications Medication Instructions Recorded Confirmed Last Taken atorvastatin 10 mg tablet 10 mg PO QAM 08/19/18 10/07/22 08/26/22 06:30 carvedilol 6.25 mg tablet 6.25 mg PO QAM 08/19/18 10/07/22 08/26/22 06:30 lisinopril 5 mg tablet 5 mg PO QAM 08/19/18 10/07/22 08/25/22 09:00 metformin 1,000 mg tablet 1,000 mg PO QAM 08/19/18 10/07/22 08/25/22 09:00 finasteride 5 mg tablet 5 mg PO DAILY #90 tabs 11/21/21 10/07/22 08/26/22 06:30 tamsulosin 0.4 mg capsule 0.4 mg PO DAILY #90 caps 11/21/21 10/07/22 08/26/22 06:30 omega-3 fatty acids 1,000 mg PO QAM 08/04/22 10/07/22 08/12/22 Past Medical History Medical History BPH (benign prostatic hyperplasia) Diabetes mellitus, type 2 NIDDM H/O methicillin resistant Staphylococcus aureus Per patient was cleared via nasal swabs 2008 [facility] Hearing deficit History of COVID-19 08/26/22 ([facility] PCR) > head cold/headache (resolved) Hx of hepatitis Hx (childhood) Hyperlipidemia Hypertension Obesity Sciatic nerve pain Past Family History Family History Mother Family history of diabetes mellitus Other No family history of adverse response to anesthesia Past Surgical History Surgical History History of amputation of finger of left hand History of ankle surgery Right History of appendectomy History of cardiac cath 2008 (2/2 abnormal stress test) > no stents History of repair of rotator cuff Right History of tonsillectomy History of total knee replacement R/L Hx of colonoscopy Hx of shoulder replacement Right TSA (10/20/18): Grade 2 view, MAC#4, ETT 7.5 + PNB at [facility] Social History Smoking Status: Never smoker Hx Alcohol Use: Yes Alcohol type: beer alcohol intake frequency: a few times a month substance use type: does not use Lab Results Anesthesia Preop Results Results Anesthesia Widget: WBC 6.18 K/ul (4.8-10.8) 08/12/22 Hgb 13.2 g/dl (14.0-18.0) L 08/12/22 Hct 38.5 % (40.1-51.0) L 08/12/22 Plt 266 K/uL (130-400) 08/12/22 Na 138 mmol/L (136-145) 08/12/22 K 4.2 mmol/L (3.5-5.1) 08/12/22 Cl 105 mmol/L (98-107) 08/12/22 CO2 27 mmol/L (21-32) 08/12/22 BUN 16 mg/dl (6-23) 08/12/22 Creat 1.04 mg/dl (0.6-1.4) 08/12/22 Glucose Level 113 mg/dl (70-99(Fasting)) H 08/12/22 POC Glucose 139 mg/dl (70-99) H 08/26/22 PT 10.9 Seconds (9.0-12.0) 08/12/22 PTT 27.8 Seconds (21.0-31.0) 08/12/22 INR 1.0 (0.9-1.1) 08/12/22 HA1c 6.2 % (4.5-5.6) H 08/12/22 COVID-19 PCR POSITIVE (Negative) A* 08/26/22 SARS-CoV-2, RNA, NAAT POSITIVE (NEGATIVE) A* 08/26/22 Blood Type A Positive 08/26/22 Antibody Screen NEGATIVE 08/26/22 Testing Electrocardiogram Date: 08/12/22 SR with PACs at 65bpm. Otherwise normal ECG. No significant change compared to 08/27/18 per wet process technician comparison. Chest X-Ray Date: 08/12/22 FINDINGS: No lines and tubes are seen. The cardiomediastinal silhouette is normal. The lungs are clear. No evidence of pleural effusion or pneumothorax. Right shoulder arthroplasty is noted. Scoliosis is seen. IMPRESSION: No acute chest disease.
[~2022-10-13 08:04] MED LIST changes: -CEFAZOLIN 2000MG 2,000 MG/15 ML SYR IV SCH; -DEXAMETHASONE SOD INJ 4 MG/ML VIAL ONE; -FAMOTIDINE 20 MG TAB PO SCH; +GABAPENTIN 300 MG CAP PO SCH; -GABAPENTIN 300 MG x 2 PO SCH; -LIDOCAINE HCL 2% 2 ML VIAL/AMP(20MG/ML) INFIL ONE; -METOCLOPRAMIDE HCL 10 MG TABLET PO SCH; -MIDAZOLAM HCL 1 MG/ML 2ML VIAL ONE; -ONDANSETRON INJ 2 MG/ML 2 ML VIAL ONE; -PROPOFOL IV EMULSION 10 MG/ML 20 ML VIAL IV ONE; -ROCURONIUM BROMIDE 10 MG/ML 5 ML VIAL ONE; -ROPIVACAINE 0.5% 5 MG/ML 30 ML VIAL ONE; +ceFAZolin 2000MG 2,000 MG/15 ML SYR IV SCH; -dexAMETHasone 4 MG TAB PO SCH; -fentaNYL citrate 100 MCG/2 ML VIAL ONE
[2022-10-13] MEDS ORDERED: fentaNYL citrate PF 100 MCG/2 ML VIAL IV PRN (09:30)
[2022-10-13] MEDS ORDERED: ONDANSETRON INJ 2 MG/ML 2 ML VIAL IV PRN ×2 (09:30→13:39)
[2022-10-13] MEDS ORDERED: ATROPINE SULFATE 0.1 MG/ML 10ML SYR IV PRN (09:30)
[2022-10-13] MEDS ORDERED: ePHEDrine sulfate 50 MG/ML AMP IV PRN (09:30)
--- NOTE | 2022-10-13 09:31 | History & Physical Bridge Note ---
Date of Service October 13, 2022 History & Physical Bridge Note I have examined the patient, reviewed the History & Physical and in the interval since the performance of the History & Physical I have noted the following changes of clinical significance: no changes noted
--- NOTE | 2022-10-13 09:32 | History & Physical Report ---
Date of Service October 13, 2022 Assessment & Plan (1) Neurogenic claudication due to lumbar spinal stenosis: Plan: L3-S1 decompression and fusion History of Present Illness Chief Complaint: Back and leg pain Primary Care Provider: Lucian Torres DO This is a 58-year-old male who presents with chronic persistent back and leg pain. After failing since course of nonoperative care is here for surgical invention. Allergies Allergy/AdvReac Type Severity Reaction Status Date / Time No Known Allergies Allergy Verified 10/13/22 08:34 Home Medications Medication Instructions Recorded Confirmed Type atorvastatin 10 mg tablet 10 mg PO QAM 08/19/18 10/13/22 History carvedilol 6.25 mg tablet 6.25 mg PO QAM 08/19/18 10/13/22 History lisinopril 5 mg tablet 5 mg PO QAM 08/19/18 10/13/22 History metformin 1,000 mg tablet 1,000 mg PO QAM 08/19/18 10/13/22 History finasteride 5 mg tablet 5 mg PO DAILY #90 tabs 11/21/21 10/13/22 Rx tamsulosin 0.4 mg capsule 0.4 mg PO DAILY #90 caps 11/21/21 10/13/22 Rx omega-3 fatty acids 1,000 mg PO QAM 08/04/22 10/13/22 History Past Med/Surg History Medical History BPH (benign prostatic hyperplasia) Diabetes mellitus, type 2 NIDDM H/O methicillin resistant Staphylococcus aureus Per patient was cleared via nasal swabs 2008 [facility] Hearing deficit History of COVID-19 08/26/22 ([facility] PCR) > head cold/headache (resolved) Hx of hepatitis Hx (childhood) Hyperlipidemia Hypertension Obesity Sciatic nerve pain Surgical History History of amputation of finger of left hand History of ankle surgery Right History of appendectomy History of cardiac cath 2008 (2/2 abnormal stress test) > no stents History of repair of rotator cuff Right History of tonsillectomy History of total knee replacement R/L Hx of colonoscopy Hx of shoulder replacement Right TSA (10/20/18): Grade 2 view, MAC#4, ETT 7.5 + PNB at [facility] Family History Mother Family history of diabetes mellitus Other No family history of adverse response to anesthesia Social History Smoking Status: Never smoker Second Hand Exposure: No; Hx Alcohol Use: Yes Alcohol type: beer Preferred Language: Nauruan Communication Ability: Effective 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
[2022-10-13] MEDS ORDERED: ceFAZolin 330 MG/ML 1 GM VIAL ONE (09:41)
[2022-10-13] MEDS ORDERED: BUPIVACAINE/EPINEPHRINE 0.25% 1:200,000 30 ML VIAL ONE (09:41)
[2022-10-13] MEDS ORDERED: PROPOFOL IV EMULSION 10 MG/ML 20 ML VIAL IV ONE (09:55)
[2022-10-13] MEDS ORDERED: ONDANSETRON INJ 2 MG/ML 2 ML VIAL ONE (09:55)
[2022-10-13] MEDS ORDERED: ROCURONIUM BROMIDE 10 MG/ML 5 ML VIAL IV ONE ×2 (09:55→10:31)
[2022-10-13] MEDS ORDERED: HYDROmorphone INJ 2 MG/ML SYR/VIAL ONE (09:56)
[2022-10-13] MEDS ORDERED: DEXAMETHASONE SOD INJ 4 MG/ML VIAL ONE (10:24)
[2022-10-13] MEDS ORDERED: PHENYLEPHRINE 100MCG/ML 5ML SYR ONE (10:31)
[2022-10-13] MEDS ORDERED: ePHEDrine sulfate 50 MG/ML SYR ONE (10:31)
[2022-10-13] MEDS ORDERED: FLOSEAL HEMOSTATIC MATRIX 10ML TOP ONE (10:51)
[2022-10-13] MEDS ORDERED: NEOSTIGMINE METHYLSULFATE 1 MG/ML 10ML VIAL ONE (12:09)
[2022-10-13] MEDS ORDERED: PHENYLEPHRINE HCL 10 MG/ML VIAL ONE (12:09)
[2022-10-13] MEDS ORDERED: GLYCOPYRROLATE 0.2 MG/ML VIAL ONE (12:09)
--- NOTE | 2022-10-13 12:20 | Operative Report ---
Post Operative Report Pre & Post Diagnosis Operation Date: 10/13/22 10:05 Pre-Op Diagnosis: Neurogenic claudication due to lumbar spinal stenosis Spondylolisthesis L5-S1. Post-Op Diagnosis: Same I identified the patient and participated in the time-out.: Yes Procedure Operation Date: 10/13/22 10:05 Actual Procedures #1 lumbar decompression bilateral medial facetectomies and foraminotomies L3-L4, L4-5 and L5-S1. #2 posterior spinal fusion L4-L5 L5-S1. #3 placement posterior instrumentation L4-L5 L5-S1. #4 interbody fusion L4-L5 L5-S1. #5 placement of Spira 15 x 26 mm cage at L4-L5 and 11 x 26 mm cage at L5-S1. #6 placement locally harvested morselized autograft in the posterior gutters. #7 placement of I factor amount of the test in the interbody space and posterior lateral gutters. Surgeon Kash Obrien, DO [place] [employer] Christine Diaz Estimated Blood Loss 750 Findings See Below The patient is 5 foot 10 weighing over 116 kg with a BMI in excess of 36. The patient's body habitus did contribute to significant technical difficulty required deepest retractors longer instruments in order to perform his procedure this combined with an EBL of greater than 750 cc created at least 50% increased operative time. Specimens None Indications This is a 58-year-old male who presents above-mentioned diagnosis after failing course of nonoperative care is here for the above-mentioned procedure. Description of Procedure Patient was met with identified informed consent obtained. Patient was then taken to the operative suite underwent ablation placed in a prone position the [place] table top Dagoberto frame. All bony promises well-padded eyes inspected to ensure no external pressure placed upon them. This point the lumbar spine was prepped and draped in normal sterile fashion. Sharp dissection with the assistance of Bovie cautery performed down to and exposing the lamina and transverse processes of L for L5 and sacral ala bilaterally. From caudal to cephalad fashion complete laminectomy of L5 L4 and partial laminectomy of L3 was performed including bilateral medial facetectomies and foraminotomies addressing severe spinal stenosis and neural compression. Pedicle screws were then placed in L4-L5 and S1 levels bilaterally with assistance of fluoroscopy and appropriately sized brian contoured and placed. By way of transforaminal approach on the left complete discectomy of L5-S1 was performed endplates curetted to subcortical bleeding bone and a left by 26 mm Spira cage with I factor tapped in position. Emergency did L4-L5 and again by way of a transforaminal approach on the left complete discectomy performed endplates curetted to subcortical bleeding bone and a 15 x 26 mm Spira cage with I factor tapped in position. The rods were then locked into final position bilaterally. The transverse processes of L4-L5 and S1 levels burred to subcortical bleeding bone. I factor combined with the test and locally harvested morselized autograft was placed in the posterior gutters. 15 round MINH drain inserted. The incision was then closed with 1 Vicryl the fascia 2-0 Vicryl subcutaneously and 4 Monocryl for final skin closure. Steri-Strip sterile dressings placed. Patient awakened taken to PACU stable condition. Please note spinal cord monitoring was utilized at the procedure no changes noted. Lastly Christine Diaz was present at the entire surgeon while the patient positioning complex portions of the surgery and final skin closure. I attest to the content of the Intraoperative Record and any orders documented therein. Any exceptions are noted below.
--- NOTE | 2022-10-13 12:37 | Fluoroscopy Report ---
INTRAOPERATIVE RADIOGRAPHS CLINICAL HISTORY: L3-L5 spinal fusion. Fluoro time: 25 seconds Exposure: 25.16 mGy FINDINGS: 2 spot fluoroscopic views of the lumbar spine are presented. There has been discectomy at L 3-L4 and L4-L5 with laminectomy and posterior fusion at L3-L5. Interpedicular screws are present at a ll levels. The orthopedic hardware appears intact. There is mild anterolisthesis at L4-L5. IMPRESSION: Intraoperative images from lumbar spinal fusion surgery as above. Electronically signed by: James Lu M.D. 10/13/2022 12:36 PM
[2022-10-13] MEDS ORDERED: PROMETHAZINE HCL 12.5 MG in SODIUM CHLORIDE 0.9% 50 ML IV PRN (13:39)
[2022-10-13] MEDS ORDERED: traMADol HCL 50 MG TABLET PO PRN (13:39)
[2022-10-13] MEDS ORDERED: METOCLOPRAMIDE HCL INJ 5 MG/ML 2 ML VIAL IV PRN (13:39)
[2022-10-13] MEDS ORDERED: SOD PHOSPHATE/SOD BIPHOSPHATE ENEMA 132 ML BTL PR PRN (13:39)
[2022-10-13] MEDS ORDERED: DO NOT ADMINISTER PNEUMOCOCCAL VACCINE PRN (13:39)
[2022-10-13] MEDS ORDERED: HYDROmorphone INJ 0.5 MG/0.5 ML SYR IV PRN (13:39)
[2022-10-13] MEDS ORDERED: MAGNESIUM HYDROXIDE SUSP 30 ML UDC PO PRN (13:39)
[2022-10-13] MEDS ORDERED: ALUMINUM/MAGNESIUM SUSP 30 ML UDC PO PRN (13:39)
[2022-10-13] MEDS ORDERED: hydrOXYzine HCl 25 MG TAB PO PRN (13:39)
[2022-10-13] MEDS ORDERED: LORazepam 2 MG/1 ML VIAL IV PRN (13:39)
[2022-10-13] MEDS ORDERED: NALOXONE HCL 0.4 MG/1 ML VIAL/CARP IV PRN (13:39)
[2022-10-13] MEDS ORDERED: LORazepam 0.5 MG TAB PO PRN (13:39)
[2022-10-13] MEDS ORDERED: ACETAMINOPHEN 1,000 MG/100 ML VIAL IV PRN (13:39)
[2022-10-13] MEDS ORDERED: ONDANSETRON 4 MG OD TAB PO PRN (13:39)
[2022-10-13] MEDS ORDERED: HYDROmorphone INJ 1 MG/ML SYRINGE IV PRN (13:39)
[2022-10-13] MEDS ORDERED: PHARMACY GLYCEMIC MGMT CONSULT PRN (13:39)
[2022-10-13] MEDS ORDERED: diphenhydrAMINE Capsule 25 MG CAP PO PRN (13:39)
[2022-10-13] MEDS ORDERED: DO NOT ADMINISTER FLU VACCINE PRN (13:39)
[2022-10-13] MEDS ORDERED: FAMOTIDINE 20 MG TAB PO PRN (13:39)
[2022-10-13] MEDS ORDERED: bisacodyL 10 MG SUPP PR PRN (13:39)
--- NOTE | 2022-10-13 13:48 | Anesthesiology Progress Note ---
Date of Service October 13, 2022 Anesthesia Post Procedure Vital Signs Vital Signs: Temp Pulse Pulse Resp BP Pulse Ox O2 Del Method 10/13/22 13:42 97.5 F L 75 16 97/64 L 95 Nasal Cannula 10/13/22 13:20 74 13 99/68 L 94 Nasal Cannula 10/13/22 13:10 97.7 F 77 13 100/69 94 Nasal Cannula 10/13/22 13:00 76 15 98/70 L 94 Nasal Cannula 10/13/22 12:50 73 12 94/66 L 96 Oxymask 10/13/22 12:40 80 12 101/71 97 Oxymask 10/13/22 12:34 97.2 F L 78 15 97/67 L 96 Oxymask 10/13/22 08:54 98.2 F 86 20 152/77 H 97 Room Air O2 Flow Rate 10/13/22 13:42 1 10/13/22 13:20 2 10/13/22 13:10 2 10/13/22 13:00 2 10/13/22 12:50 5 10/13/22 12:40 9 10/13/22 12:34 9 10/13/22 08:54 Pain Intensity Back: Pain Intensity: 4 Transfer of Care Handoff Completed per policy Notes Mental Status: alert / awake / arousable and participated in evaluation Patient Amnestic to Procedure: Yes Nausea / Vomiting: adequately controlled Pain: adequately controlled Airway Patency, RR, SpO2: stable & adequate BP & HR: stable & adequate Hydration State: stable & adequate Anesthetic Complications: no major complications apparent and Pt Satisfied with anesthetic care
[2022-10-13] MEDS: SODIUM CHLORIDE 0.9% 1000ML 1,000 ML IV SCH ×2 (14:20→22:13)
[2022-10-13] MEDS ORDERED: GLUCOSE 40% GEL 15 GM TUBE PO PRN (14:30)
[2022-10-13] MEDS ORDERED: GLUCAGON FOR INJ 1 MG VIAL IM PRN (14:30)
[2022-10-13] MEDS ORDERED: GLUCOSE 10 TAB/TUBE PO PRN (14:30)
[2022-10-13] MEDS ORDERED: NovoLIN-N (NPH) PER UNIT CHARGE SQ ONE ×2 (14:30)
[2022-10-13] MEDS ORDERED: CARBOHYDRATES FOR HYPOGLYCEMIA PO PRN (14:30)
[2022-10-13] MEDS ORDERED: DEXTROSE 50% 50 ML SYRINGE IV PRN (14:30)
--- NOTE | 2022-10-13 14:42 | Pharmacy Report ---
Pharmacy Glycemic Short Note 2 - Date of Service October 13, 2022 - Glycemic Short BSG Results (Last 24 hours): 10/13/22 10/13/22 10/13/22 08:32 12:33 13:50 POC Glucose 144 H 189 H 174 H OUTPATIENT ANTIDIABETIC REGIMEN: * metformin 1000 mg PO daily * HbA1C = 6.2% (08/12/22) ASSESSMENT: * Mr Rogers is a 66 y/o M with a PMH of T2DM who presents for spinal surgery. * Patient's BSG on admission was 144 mg/dL and after surgery was 189-174 mg/dL. Patient received dexamethasone 4 mg IV during surgery. * For dexamethasone, will give NPH 25 units (0.2 units/kg) - less given since patient received dexamethasone earlier in the day. * For Novolog, will start with weight-based stress of 2-3 since patient received steroids. * Patient does have ongoing steroids ordered - will evaluate NPH dosing based upon today's response. PLAN FOR INPATIENT GLYCEMIC CONTROL: * Hold outpatient oral diabetes medications * Basal insulin * NPH 25 units SQ x 1 with ongoing basal to be determined by response today. * Bolus insulin * NovoLog per scale ACHS or Q6hrs while NPO * Goal Range: Low 110 mg/dL - High 140 mg/dL * Correction Factor: 20 mg/dL/unit * Nutritional / Prandial insulin per carb ratio of 1 unit per 5 grams CHO consumed
[2022-10-13] MEDS: INSULIN ASPART PER UNIT CHARGE SC SCH ×3 (14:52→21:03)
--- NOTE | 2022-10-13 16:16 | Consultation ---
Date of Consultation October 13, 2022 Assessment & Plan (1) Neurogenic claudication due to lumbar spinal stenosis: s/p lumbar decompression with spinal fusion L3-S1 by Dr. Obrien EBL 750cc POD #0 -pain/wound management per Ortho -VTE prophylaxis per Ortho, encourage early ambulation -incentive spirometry encouraged -CBC, BMP in am -PT/OT and activity restrictions per Ortho (2) Post-operative state: (3) Type II diabetes mellitus: Well controlled A1C <6.5. Glycemic pharmacist is following and giving NPH and Novolog today. Holding home metformin. Notably, the patient is on decadron daily which will cause a steroid induced hyperglycemia. Cont insulin management per glycemic pharmacist. (4) Hyperlipidemia: chronic, stable. Cont atorvastatin per home regimen. (5) H/O cardiomyopathy: H/O reduced EF with improvement in EF per medical records. He appears euvolemic and continues on coreg, lisinopril. Cardiology records are not available. BP is at goal. (6) Obesity: Lifestyle changes recommended after appropriate post op recovery. DVT proph: SCDs/ambulation Full Code Dispo-pending PT/OT evaluation and per ortho recs. Traci Peralta DO [facility] Hospitalist History of Present Illness Reason for Consultation: post op medical management Attending Physician: Kash Obrien DO History of Present Illness 66 yo M presents for elective lumbar decompression with spinal fusion of L3-S1 by Dr. Obrien. He is doing well post operatively and denies any pain that is not controlled by the narcotic medications. He denies any symptoms of numbness or tingling in his feet and otherwise is doing well without symptoms. He has no current questions or concerns regarding his medications at this point. Allergies Allergy/AdvReac Type Severity Reaction Status Date / Time No Known Allergies Allergy Verified 10/13/22 08:34 Home Medications Medication Instructions Recorded Confirmed Type atorvastatin 10 mg tablet 10 mg PO QAM 08/19/18 10/13/22 History carvedilol 6.25 mg tablet 6.25 mg PO BID 08/19/18 10/13/22 History lisinopril 5 mg tablet 5 mg PO QAM 08/19/18 10/13/22 History metformin 1,000 mg tablet 1,000 mg PO QAM 08/19/18 10/13/22 History finasteride 5 mg tablet 5 mg PO DAILY #90 tabs 11/21/21 10/13/22 Rx tamsulosin 0.4 mg capsule 0.4 mg PO DAILY #90 caps 11/21/21 10/13/22 Rx omega-3 fatty acids 1,000 mg PO QAM 08/04/22 10/13/22 History Patient History Medical History (Updated 10/13/22 @ 16:14 by Traci Peralta DO) BPH (benign prostatic hyperplasia) Diabetes mellitus, type 2 NIDDM H/O cardiomyopathy H/O methicillin resistant Staphylococcus aureus Per patient was cleared via nasal swabs 2008 [facility] Hearing deficit History of COVID-19 08/26/22 ([facility] PCR) > head cold/headache (resolved) History of herpes zoster Hx of hepatitis Hx (childhood) Hyperlipidemia Hypertension Obesity Sciatic nerve pain Surgical History (Updated 10/13/22 @ 16:04 by Traci Peralta DO) History of amputation of finger of left hand History of ankle surgery Right History of appendectomy History of cardiac cath 2008 (2/2 abnormal stress test) > no stents History of repair of rotator cuff Right History of tonsillectomy History of total knee replacement R/L Hx of colonoscopy Hx of shoulder replacement Right TSA (10/20/18): Grade 2 view, MAC#4, ETT 7.5 + PNB at [facility] Family History Mother Family history of diabetes mellitus Other No family history of adverse response to anesthesia Social History Smoking Status: Never smoker Second Hand Exposure: No; Hx Alcohol Use: Yes Alcohol type: beer Preferred Language: Egyptian Communication Ability: Effective Air Sealing Technician Required: No Beliefs That Will Affect Care: None marital status: Current Living Situation: Spouse Feels Safe at Home: Yes Safety Concerns: Feels Safe At This Time Assistive Devices: Denture - Upper and Glasses Assistive Devices Comment: READING GLASSES Review of Systems Review of Systems: All systems were reviewed and negative except as indicated on HPI above. Physical Exam Physical Exam: CONSTITUTIONAL: NAD, vitals as above, generally well-appearing, NAD EYES: normal conjunctivae, no scleral icterus ENT: external ear and nose normal, MMM NECK: trachea midline RESPIRATORY: clear to auscultation bilaterally, no crackles, rales or wheezes, normal respiratory effort CARDIOVASCULAR: regular rate and rhythm, S1 and 2 heard without murmurs, gallops or rubs, no JVD, no peripheral edema CHEST: inspection of chest was normal GASTROINTESTINAL: soft, nontender, ND, no guarding MUSCULOSKELETAL: strength 5/5 throughout, head is normocephalic and atraumatic SKIN: warm and dry, posterior L spine wound not evaluated given he is just up from PACU NEUROLOGIC: CN 2-12 grossly intact, no sensory deficit, normal cognition, normal speech, no tremor PSYCHIATRIC: alert cooperative and oriented to person, place and time. Euthymic mood, makes good eye contact, language grossly intact, recent and remote memory grossly intact. Results & Data Vital Signs (Past 12 Hours) Vital Signs Temp Pulse Pulse Resp BP Pulse Ox O2 Del Method 10/13/22 15:39 36.3 C L 95 H 18 107/72 95 Room Air 10/13/22 14:43 36.3 C L 93 H 18 104/74 94 Nasal Cannula 10/13/22 14:15 36.6 C 87 16 104/75 94 Room Air 10/13/22 13:42 36.4 C L 75 16 97/64 L 95 Nasal Cannula 10/13/22 13:20 74 13 99/68 L 94 Nasal Cannula 10/13/22 13:10 36.5 C 77 13 100/69 94 Nasal Cannula 10/13/22 13:00 76 15 98/70 L 94 Nasal Cannula 10/13/22 12:50 73 12 94/66 L 96 Oxymask 10/13/22 12:40 80 12 101/71 97 Oxymask 10/13/22 12:34 36.2 C L 78 15 97/67 L 96 Oxymask 10/13/22 08:54 36.8 C 86 20 152/77 H 97 Room Air O2 Flow Rate 10/13/22 15:39 10/13/22 14:43 1 10/13/22 14:15 1 10/13/22 13:42 1 10/13/22 13:20 2 10/13/22 13:10 2 10/13/22 13:00 2 10/13/22 12:50 5 10/13/22 12:40 9 10/13/22 12:34 9 10/13/22 08:54 Diagnostic Findings Lumbar Spine X-Ray 10/13/22 10:05 INTRAOPERATIVE RADIOGRAPHS CLINICAL HISTORY: L3-L5 spinal fusion. Fluoro time: 25 seconds Exposure: 25.16 mGy FINDINGS: 2 spot fluoroscopic views of the lumbar spine are presented. There has been discectomy at L3-L4 and L4-L5 with laminectomy and posterior fusion at L3- L5. Interpedicular screws are present at all levels. The orthopedic hardware appears intact. There is mild anterolisthesis at L4-L5. IMPRESSION: Intraoperative images from lumbar spinal fusion surgery as above. Electronically signed by: James Lu M.D. 10/13/2022 12:36 PM Medications Administered Current Inpatient Medications Acetaminophen (Acetaminophen 500 Mg Tab) 1,000 mg PO PREOP DINORAH Stop: 10/13/22 18:00 Last Admin: 10/13/22 08:47 Dose: 1,000 mg Acetaminophen (Acetaminophen 500 Mg Tab) 1,000 mg PO Q8H PRN PRN Reason: MILD Pain Scale 1,2,3 & Pre PT Stop: 11/12/22 13:38 Al Hydrox/Mg Hydrox/Simethicone (Aluminum/Magnesium Susp 30 Ml Udc) 30 ml PO Q6H PRN PRN Reason: Dyspepsia Stop: 11/12/22 13:38 Atorvastatin Calcium (Atorvastatin 10 Mg Tab) 10 mg PO QAM DINORAH Stop: 11/13/22 08:59 Atropine Sulfate (Atropine Sulfate 0.1 Mg/Ml 10ml Syr) 0.5 mg IV Q1M PRN PRN Reason: PACU Use-HR<40 &/or Bradycardi Stop: 10/13/22 17:31 Bisacodyl (Bisacodyl 10 Mg Supp) [address] DAILY PRN PRN Reason: Constipation Stop: 11/12/22 13:38 Carvedilol (Carvedilol 6.25 Mg Tab) 6.25 mg PO QAM DINORAH Stop: 11/13/22 08:59 Celecoxib (Celebrex 200 Mg Cap) 200 mg PO PREOP DINORAH Stop: 10/13/22 18:00 Last Admin: 10/13/22 08:47 Dose: 200 mg Dextrose (Dextrose 50% 50 Ml Syringe) 25 - 50 ml IV UD PRN; Protocol PRN Reason: Hypoglycemia Protocol Stop: 11/12/22 14:29 Diphenhydramine HCl (Diphenhydramine Capsule 25 Mg Cap) 25 mg PO Q6H PRN PRN Reason: Allergic Rhinitis/Insomnia Stop: 11/12/22 13:38 Ephedrine Sulfate (Ephedrine Sulfate 50 Mg/Ml Amp) 5 mg IV Q5M PRN PRN Reason: PACU Use Only-SBP<90 mmHg Stop: 10/13/22 17:31 Famotidine (Famotidine 20 Mg Tab) 20 mg PO Q12H PRN PRN Reason: Dyspepsia Stop: 11/12/22 13:38 Fentanyl Citrate (Fentanyl Citrate 100 Mcg/2 Ml Vial) 50 mcg IV Q5M PRN PRN Reason: PACU Use Only-Pain Stop: 10/13/22 17:31 Last Admin: 10/13/22 12:55 Dose: 50 mcg Finasteride (Finasteride 5 Mg Tab) 5 mg PO DAILY DINORAH Stop: 11/13/22 08:59 Gabapentin (Gabapentin 300 Mg Cap) 300 mg PO PREOP DINORAH Stop: 10/13/22 18:00 Last Admin: 10/13/22 08:47 Dose: 300 mg Glucagon (Glucagon For Inj 1 Mg Vial) 1 mg IM UD PRN; Protocol PRN Reason: Hypoglycemia Protocol Stop: 11/12/22 14:29 Glucose (Glucose 40% Gel 15 Gm Tube) 15 - 30 gm PO UD PRN; Protocol PRN Reason: Hypoglycemia Protocol Stop: 11/12/22 14:29 Glucose (Glucose 10 Tab/Tube) 4 - 8 tab PO UD PRN; Protocol PRN Reason: Hypoglycemia Protocol Stop: 11/12/22 14:29 Hydromorphone HCl (Hydromorphone Inj 0.5 Mg/0.5 Ml Syr) 0.5 mg IV Q3H PRN PRN Reason: MODERATE Pain (Scale 4,5,6) & Pre PT Stop: 10/27/22 13:38 Last Admin: 10/13/22 14:20 Dose: 0.5 mg Hydromorphone HCl (Hydromorphone Inj 1 Mg/Ml Syringe) 1 mg IV Q3H PRN PRN Reason: SEVERE Pain (Scale 7,8,9,10) Stop: 10/27/22 13:38 Hydroxyzine HCl (Hydroxyzine Hcl 25 Mg Tab) 25 mg PO Q8H PRN PRN Reason: Anxiety Stop: 11/12/22 13:38 Lactated Ringer's (Lr) 1,000 mls @ 15 mls/hr IV .Q24H DINORAH Stop: 10/14/22 05:59 Last Infusion: 10/13/22 10:00 Dose: Infused Cefazolin Sodium (Ancef 2000mg) 2,000 mg in 15 mls @ 3.75 mls/min IV PREOP DINORAH; Protocol Stop: 10/13/22 18:00 Last Admin: 10/13/22 10:00 Dose: 3.75 mls/min Sodium Chloride (Nss 1000ml) 1,000 mls @ 150 mls/hr IV .Q6H40M DINORAH Stop: 11/12/22 13:38 Last Admin: 10/13/22 14:20 Dose: 150 mls/hr Promethazine HCl 12.5 mg/ (Sodium Chloride) 50.5 mls @ 202 mls/hr IV Q6H PRN PRN Reason: Nausea &/or Vomiting Stop: 11/12/22 13:38 Acetaminophen (Ofirmev) 1,000 mg in 100 mls @ 400 mls/hr IV Q8H PRN PRN Reason: Pain Rating 1-3 & Pre PT Stop: 10/14/22 13:39 Cefazolin Sodium (Ancef 2000mg) 2,000 mg in 15 mls @ 3.75 mls/min IV Q8H [facility]; Protocol Stop: 10/14/22 02:33 Dexamethasone 6 mg/ Syringe 1.5 mls @ 1 mls/min IV DAILY [facility] Stop: 10/16/22 09:02 Influenza Virus Vaccine Quadrival (Do Not Administer Flu Vaccine) 1 each N/A PRN PRN PRN Reason: Notification Stop: 11/12/22 13:38 Insulin Aspart (Insulin Aspart Per Unit) 0 units SC ACHS [facility] Stop: 11/12/22 14:29 Last Admin: 10/13/22 14:52 Dose: 12 units Lisinopril (Lisinopril 5 Mg Tab) 5 mg PO QAM [facility] Stop: 11/13/22 08:59 Lorazepam (Lorazepam 0.5 Mg Tab) 0.5 mg PO Q8H PRN PRN Reason: Sedation/Anxiety Stop: 11/12/22 13:38 Lorazepam (Lorazepam 2 Mg/1 Ml Vial) 0.5 mg IV Q8H PRN PRN Reason: Sedation/Anxiety Stop: 11/12/22 13:38 Magnesium Hydroxide (Magnesium Hydroxide Susp 30 Ml Udc) 30 ml PO Q24H PRN PRN Reason: Constipation Stop: 11/12/22 13:38 Metoclopramide HCl (Metoclopramide Hcl Inj 5 Mg/Ml 2 Ml Vial) 10 mg IV Q6H PRN PRN Reason: Nausea &/or Vomiting Stop: 11/12/22 13:38 Miscellaneous (Carbohydrates For Hypoglycemia ) 15 - 30 gm PO UD PRN PRN Reason: Hypoglycemia Treatment Stop: 11/12/22 14:29 Miscellaneous Information (Pharmacy Glycemic Mgmt Consult) 1 each N/A UD PRN PRN Reason: Consult Stop: 11/12/22 13:38 Naloxone HCl (Naloxone Hcl 0.4 Mg/1 Ml Vial/Carp) 0.1 mg IV Q5M PRN PRN Reason: Oversedation/Resp depression Stop: 11/12/22 13:38 Ondansetron HCl (Ondansetron Inj 2 Mg/Ml 2 Ml Vial) 4 mg IV ONCE PRN PRN Reason: PACU Use Only-Nausea/Vomiting Stop: 10/13/22 17:31 Ondansetron HCl (Ondansetron Inj 2 Mg/Ml 2 Ml Vial) 4 mg IV Q6H PRN PRN Reason: Nausea &/or Vomiting Stop: 11/12/22 13:38 Ondansetron HCl (Ondansetron 4 Mg Od Tab) 4 mg PO Q6H PRN PRN Reason: Nausea Stop: 11/12/22 13:38 Oxycodone HCl (Oxycodone Hcl Ir 5 Mg Tab (Immediate Release)) 5 - 10 mg PO Q4H PRN PRN Reason: Pain & Pre PT Stop: 10/27/22 13:38 Pneumococcal Polyvalent Vaccine (Do Not Administer Pneumococcal Vaccine) 1 each N/A PRN PRN PRN Reason: Notification Stop: 11/12/22 13:38 Polyethylene Glycol (Polyethylene (Miralax) 17 Gm Pack) 17 gm PO Q6 DINORAH Stop: 11/13/22 05:59 Senna/Docusate Sodium (Docusate Sodium/Senna 50/8.6mg Tab) 2 tab PO HS DINORAH Stop: 11/12/22 20:59 Sodium Biphosphate/Sodium Phosphate (Sod Phosphate/Sod Biphosphate Enema 132 Ml Btl) [address] ONE PRN PRN Reason: Constipation Stop: 11/12/22 13:38 Tamsulosin HCl (Tamsulosin Hcl 0.4 Mg Cap) 0.4 mg PO DAILY DINORAH Stop: 11/13/22 08:59 Tramadol HCl (Tramadol Hcl 50 Mg Tablet) 50 - 100 mg PO Q4H PRN PRN Reason: Moderate-Severe pain & Pre PT Stop: 11/12/22 13:38
[2022-10-13] MEDS: ceFAZolin 2000MG 2,000 MG/15 ML SYR IV SCH (17:46)
[2022-10-13] MEDS: DOCUSATE SODIUM/SENNA 50/8.6MG TAB PO SCH (21:03)
[2022-10-13] MEDS: carvediloL 6.25 MG TAB PO SCH (21:03)
[2022-10-14] MEDS: ceFAZolin 2000MG 2,000 MG/15 ML SYR IV SCH (02:04)
[2022-10-14] MEDS: ACETAMINOPHEN 500 MG TAB PO PRN ×2 (02:08→23:13)
[2022-10-14] MEDS: SODIUM CHLORIDE 0.9% 1000ML 1,000 ML IV SCH ×4 (04:20→19:29)
[2022-10-14] MEDS: POLYETHYLENE (MIRALAX) 17 GM PACK PO SCH ×4 (05:05→23:12)
[2022-10-14] MEDS: ATORVASTATIN 10 MG TAB PO SCH (07:52)
[2022-10-14] MEDS: dexAMETHasone 6 MG in SYRINGE 0 ML IV SCH (07:53)
[2022-10-14] MEDS: carvediloL 6.25 MG TAB PO SCH ×2 (07:53→22:35)
[2022-10-14] MEDS: TAMSULOSIN HCL 0.4 MG CAP PO SCH (07:54)
[2022-10-14] MEDS: lisinopril 5 MG TAB PO SCH (07:54)
[2022-10-14] MEDS: FINASTERIDE 5 MG TAB PO SCH (07:54)
[2022-10-14 08:44] LABS: Basophils # (auto) 0.01 K/uL (0-0.2); Basophils % (auto) 0.1 %; Hematocrit (blood only) 30.8 % (42.0-52.0); Hemoglobin 10.5 g/dl (14.0-18.0); Immature Granulocytes # (auto) 0.05 K/uL (0.01-0.20); Immature Granulocytes % (auto) 0.4 %; Lymphocytes # (auto) 1.37 K/uL (1.2-3.4); Lymphocytes % (auto) 11.1 %; Mean Corpuscular Hemoglobin 29.6 pg (25.0-34.0); Mean Corpuscular Hgb Conc 34.1 g/dL (32.0-36.0); Mean Corpuscular Volume 86.8 fL (80.0-100.0); Mean Platelet Volume 9.6 fL (9.4-12.4); Monocytes # (auto) 0.96 K/uL (0.11-0.59); Monocytes % (auto) 7.8 %; Neutrophils # (auto) 9.96 K/uL (1.40-6.50); Neutrophils % (auto) 80.6 %; Platelet Count 307 K/uL (130-400); RDW Coefficient of Variation 12.6 % (11.5-14.5); RDW Standard Deviation 40.1 fL (36.4-46.3); Red Blood Count 3.55 M/uL (4.70-6.10); White Blood Count 12.35 K/ul (4.8-10.8)
[2022-10-14] MEDS ORDERED: carvediloL 6.25 MG TAB PO SCH (09:00)
[2022-10-14] MEDS: INSULIN ASPART PER UNIT CHARGE SC SCH ×4 (09:03→21:52)
[2022-10-14 09:15] LABS: BUN Creatinine Ratio 18.6 (10-20); Calcium 8.8 mg/dl (8.5-10.1); Creatinine Clr Calc Pharmacy 88.7 ml/min; Est GFR (African American) 87.1 ml/min; Est GFR (Non-African American) 75.2 ml/min; Potassium 4.1 mmol/L (3.5-5.1)
[2022-10-14] MEDS: INSULIN HUMAN NPH SC SCH (09:23)
--- NOTE | 2022-10-14 09:50 | Orthopedic Progress Note ---
Date of Service October 14, 2022 Assessment & Plan (1) Neurogenic claudication due to lumbar spinal stenosis: Plan: This time initiate physical therapy monitor his MINH operatively discharge home in the next few days. Admission and Anticipated Discharge Date Admission Date: October 13, 2022 Subjective Back pain controlled leg pain markedly improved Physical Exam Physical Exam: Patient is in the chair at the bedside. Discussing the testing. Appears comfortable. Results & Data Vital Signs (Past 12 Hours) Vital Signs Temp Pulse Resp BP Pulse Ox O2 Del Method 10/14/22 07:08 36.3 C L 90 18 107/67 95 Room Air 10/14/22 02:25 36.5 C 89 18 116/80 95 Room Air 10/13/22 23:00 36.4 C L 85 20 114/74 95 Room Air
--- NOTE | 2022-10-14 10:50 | Hospitalist Progress Note ---
Date of Service October 14, 2022 Assessment & Plan (1) Neurogenic claudication due to lumbar spinal stenosis: Plan: s/p lumbar decompression with spinal fusion L3-S1 by Dr. Obrien EBL 750cc POD #1 -pain/wound management per Ortho -VTE prophylaxis per Ortho, encourage early ambulation -incentive spirometry encouraged -CBC, BMP in am -PT/OT and activity restrictions per Ortho Acute blood loss anemia in setting of lumbar surgery Preop hemoglobin 13.2 POD #1 hemoglobin 10.5 Intraoperative EBL 750 mL with MINH output of 530 mL Continue to monitor hemoglobin, no indication for transfusion at this time Leukocytosis Likely reactive No signs or symptoms of infection Monitor (2) Post-operative state: (3) Type II diabetes mellitus: Plan: a1c 6.2 08/12/22 Glycemic pharmacist is following, appreciate their assistance holding home metformin Patient is receiving IV Decadron therefore will expect hyperglycemic response BSG 118 this morning (4) Hyperlipidemia: Plan: chronic, stable. Cont atorvastatin per home regimen (5) H/O cardiomyopathy: Plan: H/O reduced EF with improvement in EF per medical records. He appears euvolemic and continues on coreg, lisinopril (6) Obesity: Plan: Lifestyle changes recommended after appropriate post op recovery. DVT proph: SCDs/ambulation Full Code Dispo-pending PT/OT evaluation and per ortho recs. Thank you for this consultation. We will follow the patient with you during their hospital stay. You can reach a member of the [facility] Hospitalist Team 16/02 via hospitalist role on tiger text. A total of 45 minutes was spent with greater than 50% of that time personally viewing all current laboratory work and diagnostic imaging studies obtained in the ED. Additionally, I was able to view the patients past medication reconciliation and history with direct visualization in the patients chart. Included in the time above, a portion of that time was spent assessing the patient while discussing and collaborating with specialists, if necessary, and making medical decision making on treatment plan. All of the above was collaborated with Dr. Dalton. Please see addendum for further details. Admission and Anticipated Discharge Date Admission Date: October 13, 2022 Supervising Physician Co-Signing Physician Notes Patient seen and examined He is s/p lumbar decompression surgery L3-S1 POD 1 He reports surgical site pain is well controlled. [place] good walking around with PT Preop Hb was 13.2 on 1/17/23 Hb today is 10.5. Recheck CBC in AM Activity per surgeon Continue pain control Continue home carvedilol, lisinopril, atorvastatin Continue insulin per protocol while inpatient Other plans as detailed by Nancy Mckenna PA-C Subjective Patient was seen and examined in room 316. Follow-up lumbar procedure. He is sitting up in bedside chair without acute complaint. He is passing flatus. Denies dizziness, lightheadedness, chest pain, shortness of breath, nausea, vomiting. He has a good appetite. Review of Systems Review of Systems: All systems reviewed & are unremarkable except as noted in HPI & below Physical Exam Physical Exam: Gen: WD/WN, male, sitting on bedside chair, NAD, A&O x3 HEENT: Normocephalic, atraumatic, conjunctivae moist, sclerae anicteric, mucous membranes moist. Lung: Clear to Auscultation bilaterally, no wheezes/rales/rhonchi Heart: Regular rate, regular rhythm, no murmurs, rubs, or gallops Abdomen: Soft, NT, ND +BS x 4 Extremities: No edema, lumbar dressing CDI, MINH drain with serosanguineous drainage Skin: Warm, no rash, negative turgor. Results & Data Results & Data Vital Signs (Past 12 Hours) Vital Signs Temp Pulse Resp BP Pulse Ox O2 Del Method 10/14/22 07:08 36.3 C L 90 18 107/67 95 Room Air 10/14/22 02:25 36.5 C 89 18 116/80 95 Room Air 10/13/22 23:00 36.4 C L 85 20 114/74 95 Room Air Laboratory Results Short CBC 10/14/22 Range/Units 07:37 WBC 12.35 H (4.8-10.8) K/ul Hgb 10.5 L (14.0-18.0) g/dl Hct 30.8 L (42.0-52.0) % Plt Count 307 (130-400) K/uL BMP 10/14/22 07:37 Sodium 138 Potassium 4.1 Chloride 106 Carbon Dioxide 24 BUN 19 Creatinine 1.02 Glucose 112 H Calcium 8.8 Medications Administered Short CBC 10/14/22 Range/Units 07:37 WBC 12.35 H (4.8-10.8) K/ul Hgb 10.5 L (14.0-18.0) g/dl Hct 30.8 L (42.0-52.0) % Plt Count 307 (130-400) K/uL [facility] 10/14/22 07:37 Sodium 138 Potassium 4.1 Chloride 106 Carbon Dioxide 24 BUN 19 Creatinine 1.02 Glucose 112 H Calcium 8.8
[2022-10-14] MEDS: oxyCODONE HCL IR 5 MG TAB (IMMEDIATE RELEASE) PO PRN ×2 (11:30→16:44)
--- NOTE | 2022-10-14 12:07 | Pharmacy Report ---
Pharmacy Glycemic Short Note 2 - Date of Service October 14, 2022 - Glycemic Short BSG Results (Last 24 hours): 10/13/22 10/13/22 10/13/22 12:33 13:50 17:02 Glucose POC Glucose 189 H 174 H 184 H 10/13/22 10/14/22 10/14/22 20:38 07:37 07:56 Glucose 112 H POC Glucose 173 H 118 H 10/14/22 11:54 Glucose POC Glucose 168 H OUTPATIENT ANTIDIABETIC REGIMEN: * metformin 1000 mg PO daily * HbA1C = 6.2% (08/12/22) ASSESSMENT: 10/14/22 * Patient's BSGs yesterday were [phone] mg/dL. Patient received 51 units of insulin (25 units of NPH and 26 units of bolus). * Today's BSGs are 118-168 mg/dL. * Patient to receive dexamethasone 6 mg IV x 3 days. * Since BSGs > 150 mg/dL after dexamethasone, will increase NPH to 35 units daily (0.4 units/kg). * Tighten CR as BSGs trend upwards. Background * Mr Ken is a 66 y/o M with a PMH of T2DM who presents for spinal surgery. * Patient's BSG on admission was 144 mg/dL and after surgery was 189-174 mg/dL. Patient received dexamethasone 4 mg IV during surgery. * For dexamethasone, will give NPH 25 units (0.2 units/kg) - less given since patient received dexamethasone earlier in the day. * For Novolog, will start with weight-based stress of 2-3 since patient received steroids. * Patient does have ongoing steroids ordered - will evaluate NPH dosing based upon today's response. PLAN FOR INPATIENT GLYCEMIC CONTROL: * Hold outpatient oral diabetes medications * Basal insulin * NPH 35 units SQ daily with dexamethasone. * Bolus insulin * NovoLog per scale ACHS or Q6hrs while NPO * Goal Range: Low 110 mg/dL - High 140 mg/dL * Correction Factor: 20 mg/dL/unit * Nutritional / Prandial insulin per carb ratio of 1 unit per 4 grams CHO consumed
[2022-10-14] MEDS: DOCUSATE SODIUM/SENNA 50/8.6MG TAB PO SCH (22:35)
[2022-10-15] MEDS: POLYETHYLENE (MIRALAX) 17 GM PACK PO SCH ×3 (06:02→17:39)
[2022-10-15 06:51] LABS: Basophils # (auto) 0.01 K/uL (0-0.2); Basophils % (auto) 0.1 %; Hematocrit (blood only) 30.7 % (42.0-52.0); Hemoglobin 10.4 g/dl (14.0-18.0); Immature Granulocytes # (auto) 0.06 K/uL (0.01-0.20); Immature Granulocytes % (auto) 0.5 %; Lymphocytes # (auto) 1.59 K/uL (1.2-3.4); Mean Corpuscular Hemoglobin 29.5 pg (25.0-34.0); Mean Corpuscular Hgb Conc 33.9 g/dL (32.0-36.0); Mean Platelet Volume 9.5 fL (9.4-12.4); Monocytes # (auto) 0.96 K/uL (0.11-0.59); Monocytes % (auto) 7.2 %; Neutrophils # (auto) 10.67 K/uL (1.40-6.50); Neutrophils % (auto) 80.2 %; Platelet Count 303 K/uL (130-400); RDW Coefficient of Variation 12.6 % (11.5-14.5); RDW Standard Deviation 39.8 fL (36.4-46.3); Red Blood Count 3.53 M/uL (4.70-6.10); White Blood Count 13.29 K/ul (4.8-10.8)
[2022-10-15 07:07] LABS: BUN Creatinine Ratio 23.6 (10-20); Calcium 9.4 mg/dl (8.5-10.1); Creatinine Clr Calc Pharmacy 82.2 ml/min; Est GFR (African American) 79.5 ml/min; Est GFR (Non-African American) 68.6 ml/min; Potassium 4.4 mmol/L (3.5-5.1)
[2022-10-15] MEDS: lisinopril 5 MG TAB PO SCH (08:11)
[2022-10-15] MEDS: carvediloL 6.25 MG TAB PO SCH ×2 (08:11→20:58)
[2022-10-15] MEDS: TAMSULOSIN HCL 0.4 MG CAP PO SCH (08:11)
[2022-10-15] MEDS: ATORVASTATIN 10 MG TAB PO SCH (08:11)
[2022-10-15] MEDS: dexAMETHasone 6 MG in SYRINGE 0 ML IV SCH (08:11)
[2022-10-15] MEDS: FINASTERIDE 5 MG TAB PO SCH (08:11)
--- NOTE | 2022-10-15 08:36 | Orthopedic Progress Note ---
Date of Service October 15, 2022 Assessment & Plan (1) Neurogenic claudication due to lumbar spinal stenosis: Plan: Lorenzo is postoperative day 2 status post L3-S1 decompression and instrumented fusion. We will continue with physical therapy today. Maintain MINH drain. Continue with aggressive bowel regimen. DVT prophylaxis is in the form of teds and SCDs. Anticipate discharge home tomorrow. Admission and Anticipated Discharge Date Admission Date: October 13, 2022 Subjective Lorenzo is postoperative day 2 status post lumbar decompression and instrumented fusion from L3-S1. He has had an uneventful evening. Denies back or leg pain. MINH drain output last shift was 90 cc. H&H is morning are 10.4 and 30.7 respectively. Yesterday in physical therapy he was ambling roughly a total of 320 feet. He is passing flatus but no bowel movement. Review of Systems Review of Systems: All systems reviewed & are unremarkable except as noted in HPI & below Physical Exam Physical Exam: He sitting in a chair in no acute distress Alert and oriented x3 Lumbar dressing is clean dry intact with functioning MINH drain Calf soft and nontender bilaterally DANE hose intact bilateral lower extremity Strength intact bilateral lower extremities Results & Data Vital Signs (Past 12 Hours) Vital Signs Temp Pulse Resp BP Pulse Ox O2 Del Method 10/15/22 07:43 36.5 C 82 16 113/76 100 Room Air
[2022-10-15] MEDS: INSULIN HUMAN NPH SC SCH (09:14)
[2022-10-15] MEDS: INSULIN ASPART PER UNIT CHARGE SC SCH ×4 (09:18→20:58)
--- NOTE | 2022-10-15 11:03 | Hospitalist Progress Note ---
Date of Service October 15, 2022 Assessment & Plan (1) Neurogenic claudication due to lumbar spinal stenosis: Plan: s/p lumbar decompression with spinal fusion L3-S1 by Dr. Obrien EBL 750cc POD #2 -pain/wound management per Ortho -VTE prophylaxis per Ortho, encourage early ambulation -incentive spirometry encouraged -PT/OT and activity restrictions per Ortho Acute blood loss anemia in setting of lumbar surgery Preop hemoglobin 13.2 POD #2 hemoglobin 10.4 Intraoperative EBL 750 mL with MINH output of 530 mL Continue to monitor hemoglobin, no indication for transfusion at this time Leukocytosis Likely reactive No signs or symptoms of infection Monitor (2) Post-operative state: (3) Type II diabetes mellitus: Plan: a1c 6.2 08/12/22 Glycemic pharmacist is following, appreciate their assistance holding home metformin Patient is receiving IV Decadron therefore will expect hyperglycemic response BSG 124 this morning (4) Hyperlipidemia: Plan: chronic, stable. Cont atorvastatin per home regimen (5) H/O cardiomyopathy: Plan: H/O reduced EF with improvement in EF per medical records. He appears euvolemic and continues on coreg, lisinopril (6) Obesity: Plan: Lifestyle changes recommended after appropriate post op recovery. DVT proph: SCDs/ambulation Full Code Dispo-pending PT/OT evaluation and per ortho recs. Thank you for this consultation. We will follow the patient with you during their hospital stay. You can reach a member of the [facility] Hospitalist Team 16/02 via hospitalist role on tiger text. A total of 35 minutes was spent with greater than 50% of that time personally viewing all current laboratory work and diagnostic imaging studies obtained in the ED. Additionally, I was able to view the patients past medication reconciliation and history with direct visualization in the patients chart. Included in the time above, a portion of that time was spent assessing the patient while discussing and collaborating with specialists, if necessary, and making medical decision making on treatment plan. All of the above was collaborated with Dr. Dalton. Please see addendum for further details. Admission and Anticipated Discharge Date Admission Date: October 13, 2022 Supervising Physician Co-Signing Physician Notes Patient seen and examined. Agreed with Nancy MORGAN exam, assessment and plan. s/p lumbar decompression surgery L3-S1 performed by Dr. Obrien. No postop complication. He reports surgical site pain is well controlled. [place] good walking around with PT Continue pain control. PT/OT eval. Continue home carvedilol, lisinopril, atorvastatin Continue insulin per protocol while inpatient MD Ulices Subjective Patient was seen and examined in room 316. Follow-up lumbar procedure. He is sitting up in bedside chair without acute complaint. He had difficulty urinating last night but that has since resolved this a.m. He states he had previous knee surgeries that required a catheter and he has retention issues at that time. Currently denies f/c/s, chest pain, sob, n/v/d, abd pain. Review of Systems Review of Systems: All systems reviewed & are unremarkable except as noted in HPI & below Physical Exam Physical Exam: Gen: WD/WN, male, sitting on bedside chair, NAD, A&O x3 HEENT: Normocephalic, atraumatic, conjunctivae moist, sclerae anicteric, mucous membranes moist. Lung: Clear to Auscultation bilaterally, no wheezes/rales/rhonchi Heart: Regular rate, regular rhythm, no murmurs, rubs, or gallops Abdomen: Soft, NT, ND +BS x 4 Extremities: No edema, lumbar dressing CDI, MINH drain with serosanguineous d rainage Skin: Warm, no rash, negative turgor. Results & Data Results & Data Vital Signs (Past 12 Hours) Vital Signs Temp Pulse Resp BP Pulse Ox O2 Del Method 10/15/22 08:11 Room Air 10/15/22 07:43 36.5 C 82 16 113/76 100 Room Air Laboratory Results Short CBC 10/15/22 Range/Units 06:11 WBC 13.29 H (4.8-10.8) K/ul Hgb 10.4 L (14.0-18.0) g/dl Hct 30.7 L (42.0-52.0) % Plt Count 303 (130-400) K/uL BMP 10/15/22 06:11 Sodium 137 Potassium 4.4 Chloride 104 Carbon Dioxide 26 BUN 26 H Creatinine 1.10 Glucose 124 H Calcium 9.4
[2022-10-15] MEDS: ACETAMINOPHEN 500 MG TAB PO PRN (18:00)
[2022-10-15] MEDS: DOCUSATE SODIUM/SENNA 50/8.6MG TAB PO SCH (20:57)
[2022-10-15] MEDS: oxyCODONE HCL IR 5 MG TAB (IMMEDIATE RELEASE) PO PRN (22:28)
[2022-10-16] MEDS: ACETAMINOPHEN 500 MG TAB PO PRN (06:05)
--- NOTE | 2022-10-16 08:30 | Discharge Summary ---
Date of Service October 16, 2022 Admission HPI Per Admitting Provider This is a 58-year-old male who presents with chronic persistent back and leg pain. After failing since course of nonoperative care is here for surgical invention. Principal Diagnosis Lumbar spinal stenosis with radiculopathy Discharge Data Allergies Allergy/AdvReac Type Severity Reaction Status Date / Time No Known Allergies Allergy Verified 10/13/22 08:34 Consultations 10/13/22 13:39 Consult Hospitalist Routine Procedures Performed Operation Date: 10/13/22 10:05 Actual Procedures p L3-S1 Decompression and Fusion, Spinal Cord Monitoring(Not Applicable) - Kash Obrien DO Ordered Studies 10/13/22 10:05 FL lumbar spine 2-3V Routine Hospital Course (1) Neurogenic claudication due to lumbar spinal stenosis: Patient with lumbar decompression fusion tolerated this well stable orthopedic for possibly. Postop day 1 he was up and ambulating progress postop day 2 on postop day #3 MINH drain decreased probably. Excellent strength testing. Pain well controlled. Subsequently discharged home. Discharge orders and instructions found in the chart for further review. Total Time Total Time Spent Total Time Spent (In Minutes): 20 minutes Discharge Plan Discharge Items Patient Disposition: Home - Self-Care Reason For Visit: Spondylosis without Myleopathy or Radiculopathy, L Discharge Diagnosis: Lumbar spinal stenosis with neurogenic claudication Activity: As commented below Non-emergency contact: Primary Care Provider Call non-emergency contact if: you have any medication questions Follow-up/Referrals: Lucian Torres DO [Primary Care Provider] - Diet: Regular Addtl Attending Provider Instructions: ACTIVITY RECOMMENDATIONS: SELF CARE INSTRUCTIONS AFTER THORACIC/LUMBAR FUSIONS 1. You may walk to your tolerance. It is good exercise for your legs and back. Expect some back and intermittent leg aches and pains. 2. You may perform "counter-top" level activities (make a sandwich, adelita with a project, etc.). 3. No bending or lifting of more than 10 pounds or back twisting of any nature (roll like a log when turning in bed). 4. You may ride in a car for 20-30 minutes at a time. No driving until after your first visit with your doctor. 5. Frequent changes of position and restricting sitting to 30 minutes at a time will help limit the amount of back spasms and stiffness you may experience. 6. You may discontinue the use of ambulatory aids (cane, crutches, etc.) once your strength and confidence allow. 7. You may granulating blender the shower and let water strike your incision when you a rrive home at least once daily. Do not take a tub bath, sit in a hot tub or go into a swimming pool until after your first recheck in the office. SPECIAL CARE INSTRUCTIONS: VERY IMPORTANT TO READ AND REVIEW A. Your surgical incision has been closed with a cosmetic suture under the skin that will dissolve in about 6 weeks. In 14 days, you can use a pair of clean scissors and cut the suture that is left outside of the skin at the ends of your incision. 1. The small skin tapes can be removed 7 days after surgery if they have not fallen off by that point. 2. You may keep the wound open to air as much as possible to promote healing after post-op day number 5 unless told otherwise by your doctor. 3. If you think the wound looks like it is becoming infected (redness or worsening drainage) and/or you are experiencing fever, chill or worsening back pain and muscle spasms, contact the office so that we may evaluate you as soon as possible. B. Complications are uncommon, but please contact us if you have any signs or symptoms of: 1. wound infection (fever higher than 102.5 degrees F, redness, separation of wound, drainage, or increasing pain from the incision) 2. blood clots in legs (pain, swelling, redness and warmth in legs) 3. urinary tract infection (fever higher than 102.5 degrees F, burning upon urination or increased frequency of urination) 4. nerve problems (inability to walk on your toes or heels, numbness, loss of bowel or bladder control) 5. any other symptoms that concern you C. Please call the office at if you have any concerns or questions about your operation or recovery. D. No smoking! Smoking drastically decreases the chance of a solid fusion. E. Do not take any anti-inflammatory medications (Indocin, Advil, Motrin, Aspirin, Naprosyn, etc.) as these may inhibit the chance of a solid fusion. Tylenol is okay to take for pain. MANAGING PAIN AFTER SPINAL SURGERY 1. Narcotic medication is intended for short-term use and will be provided for surgical pain. Surgical pain usually lasts for a period of 4-6 weeks. Narcotic medication includes Percocet, Vicodin, Darvocet, Tylenol #3 or Lortab. 2. Longer-term pain is more appropriately treated with non-narcotic medication such as Tylenol ES. 3. Muscle spasm is not appropriately treated with narcotics. Muscle relaxers such as Soma, Flexeril or Skelaxin can be used along with Tylenol ES. 4. Remember that we all live with some "aches and pains". This is not unusual or uncommon after an injury or as we get older. a. Back pain is expected and may include muscle spasms for 4 to 6 weeks afte r surgery. The pain should gradually improve. If the pain worsens for no apparent reason, please contact the office. b. Intermittent leg pain may also be experienced and should not be concerned about unless it worsens for no apparent reason. If so, please contact the office. 5. We will provide appropriate medication within the normal guidelines of their prescribed use. We will also be very cautious and aware of potential abuse and extended duration of patients' medication needs. a. Pain medications are for your comfort and to assist with sleep and rest so that the tissue can heal. They are not provided in order to return to normal activity and should not be used through the day. To do so or worsening pain at night can result from ongoing tissue damage and development of tolerance to the prescribed medicine. 6. Please allow 2-3 days to process refills. Prescriptions will not be mailed but must be picked up at the office. FOLLOW UP VISIT: Keep your scheduled follow-up appointment. Any questions, please call the office at . Pending Studies at Discharge: No Stand-Alone Forms: [facility] Medications and DC Order Prescriptions: New tramadol 50 mg tablet 50 mg PO Q6H PRN (Reason: pain, moderate) Qty: 30 0RF oxycodone 5 mg tablet 5 mg PO Q6H PRN (Reason: pain, severe) Qty: 30 0RF Continued finasteride 5 mg tablet 5 mg PO DAILY Qty: 90 3RF tamsulosin 0.4 mg capsule 0.4 mg PO DAILY Qty: 90 1RF carvedilol 6.25 mg Tablet 6.25 mg PO BID atorvastatin 10 mg Tablet 10 mg PO QAM metformin 1,000 mg Tablet 1,000 mg PO QAM lisinopril 5 mg Tablet 5 mg PO QAM omega-3 fatty acids Capsule 1,000 mg PO QAM Discharge Orders: Discharge Order (Routine); Ordered 10/16/22 Ordered By: Kash Obrien Admission Data Admit Date/Time: 10/13/22 12:25 Attending Provider: Kash Obrien Admit Provider: Kash Obrien Primary Care Provider: Lucian Torres Other Providers: Traci Peralta ; Viktoria Dalton I. ; Cedric Elena ; Nisha Orozco
[2022-10-16] MEDS: ATORVASTATIN 10 MG TAB PO SCH (08:43)
[2022-10-16] MEDS: dexAMETHasone 6 MG in SYRINGE 0 ML IV SCH (08:43)
[2022-10-16] MEDS: FINASTERIDE 5 MG TAB PO SCH (08:44)
[2022-10-16] MEDS: carvediloL 6.25 MG TAB PO SCH (08:44)
[2022-10-16] MEDS: TAMSULOSIN HCL 0.4 MG CAP PO SCH (08:44)
[2022-10-16] MEDS: lisinopril 5 MG TAB PO SCH (08:44)
[2022-10-16] MEDS: INSULIN ASPART PER UNIT CHARGE SC SCH ×2 (08:55→12:40)
[2022-10-16] MEDS: INSULIN HUMAN NPH SC SCH (08:57)
--- NOTE | 2022-10-16 12:20 | Hospitalist Progress Note ---
Date of Service October 16, 2022 Assessment & Plan (1) Neurogenic claudication due to lumbar spinal stenosis: Plan: s/p lumbar decompression with spinal fusion L3-S1 by Dr. Obrien EBL 750cc POD #3 -pain/wound management per Ortho -VTE prophylaxis per Ortho, encourage early ambulation -incentive spirometry encouraged -PT/OT and activity restrictions per Ortho Acute blood loss anemia in setting of lumbar surgery Preop hemoglobin 13.2 Intraoperative EBL 750 mL with MINH output of 530 mL Continue to monitor hemoglobin, no indication for transfusion at this time Leukocytosis Likely reactive No signs or symptoms of infection Monitor (2) Post-operative state: (3) Type II diabetes mellitus: Plan: a1c 6.2 08/12/22 Glycemic pharmacist is following, appreciate their assistance holding home metformin Patient is receiving IV Decadron therefore will expect hyperglycemic response BSG 124 this morning (4) Hyperlipidemia: Plan: chronic, stable. Cont atorvastatin per home regimen (5) H/O cardiomyopathy: Plan: H/O reduced EF with improvement in EF per medical records. He appears euvolemic and continues on coreg, lisinopril (6) Obesity: Plan: Lifestyle changes recommended after appropriate post op recovery. DVT proph: SCDs/ambulation Full Code Dispo-pending PT/OT evaluation and per ortho recs. Thank you for this consultation. We will follow the patient with you during their hospital stay. You can reach a member of the [facility] Hospitalist Team 16/02 via hospitalist role on tiger text. A total of 30 minutes was spent with greater than 50% of that time personally viewing all current laboratory work and diagnostic imaging studies obtained in the ED. Additionally, I was able to view the patients past medication josefa nciliation and history with direct visualization in the patients chart. Included in the time above, a portion of that time was spent assessing the patient while discussing and collaborating with specialists, if necessary, and making medical decision making on treatment plan. All of the above was collaborated with Dr. Dalton. Please see addendum for further details. Admission and Anticipated Discharge Date Admission Date: October 13, 2022 Supervising Physician Co-Signing Physician Notes Patient seen and examined. Agreed with Nisha MORGAN exam, assessment and plan. s/p lumbar decompression surgery L3-S1 performed by Dr. Obrien. No postop com plication. He reports surgical site pain is well controlled. [place] good walking around with PT Continue pain control. PT/OT eval. Fall precaution MD Ulices Subjective Patient was seen and examined in room 316. Sitting in bedside chair without issue. Urinary retention issue has resolved. Some surgical site discomfort but participating with therapy without issue. Currently denies f/c/s, chest pain, sob, n/v/d, abd pain. Preparing for discharge today. Review of Systems Review of Systems: All systems were reviewed and negative except as indicated on HPI above. Physical Exam Physical Exam: Gen: WD/WN, NAD, sitting in bedside chair, A&Ox3 HEENT: Normocephalic, atraumatic, conjunctivae moist, sclerae anicteric, mucous membranes moist Lung: Clear to Auscultation bilaterally, no wheezes/rales/rhonchi Heart: Regular rate, regular rhythm, no murmurs, rubs, or gallops Abdomen: Soft, NT, ND +BS x 4 Extremities: Spinal dressing c/d/i. MINH drain visualized, no edema Skin: Warm, no rash Results & Data Results & Data Vital Signs (Past 12 Hours) Vital Signs Temp Pulse Resp BP Pulse Ox O2 Del Method 10/16/22 08:45 82 115/71 98 Room Air 10/16/22 07:29 36.5 C 86 16 110/80 96 Room Air
[2022-10-16] MEDS ORDERED: INSULIN ASPART PER UNIT CHARGE SC ONE (13:18)
== END 2022-10-16 13:19 | disposition home or self-care (01) | DRG 454 ==
LOC: ASU 08:04 → 3E 12:25

== ENCOUNTER 2025-06-21 05:16 | Observation (INO) ==
--- NOTE | 2025-05-31 10:45 | PAT Medication Instructions ---
Medication Instructions Date of Service May 31, 2025 Home Medications atorvastatin 10 mg tablet (Lipitor) 10 mg PO QAM carvedilol 6.25 mg tablet 6.25 mg PO BID lisinopril 5 mg tablet 5 mg PO QAM metformin 1,000 mg tablet 1,000 mg PO BID acetaminophen 500 mg capsule 500 - 1,000 mg PO QID PRN Pain fiber 4 cap PO DAILY finasteride 5 mg tablet 5 mg PO QAM tamsulosin 0.4 mg capsule 0.4 mg PO QAM DO NOT take the morning of surgery lisinopril 5 mg tablet 5 mg PO QAM metformin 1,000 mg tablet 1,000 mg PO BID fiber 4 cap PO DAILY Take morning of surgery With a small sip of water, OTHERWISE NOTHING TO EAT OR DRINK AFTER MIDNIGHT: atorvastatin 10 mg tablet (Lipitor) 10 mg PO QAM carvedilol 6.25 mg tablet 6.25 mg PO BID acetaminophen 500 mg capsule 500 - 1,000 mg PO QID PRN Pain (if needed) finasteride 5 mg tablet 5 mg PO QAM tamsulosin 0.4 mg capsule 0.4 mg PO QAM Take evening before surgery carvedilol 6.25 mg tablet 6.25 mg PO BID metformin 1,000 mg tablet 1,000 mg PO BID acetaminophen 500 mg capsule 500 - 1,000 mg PO QID PRN Pain (if needed) Other Notes If you have any questions please call us at [phone] or [phone] or [phone] or [phone]
--- NOTE | 2025-06-07 13:53 | Anesthesiology Consultation ---
Date of Service June 07, 2025 Assessment & Plan (1) Encounter for pre-operative examination: Chart Review Chart Review: Acceptable Risk for Surgery (pending PCP clearance (surgeon ordered)) and Patient seen in Pre Admission Testing - Awaiting surgeon ordered PCP preop 06/12/25 (Dr Lucian Torres [facility])- please send EKG and preop labs - Check BSG AM DOS - Patient is NOT an ideal OPJ candidate- currently 23 hour obs Spinal stimulator-patient aware to bring remote DOS Per PAT appt on 06/07/25, no recent illness/disease exposures, illness related symptoms, or recent illness/disease positive tests. Will leave to surgeon's discretion if preop Covid testing needed L3-S1 decompression and fusion 10/13/22= Done under GA with Grade 2 view with MAC #3. ETT #7.5 Teaching & Discussion Pre-Anesthesia Teaching/Discussion Notes: Instructed NPO after midnight before surgery,except medications with 15 cc of water. Medication instructions provided according to the PAT guidelines. History Surgery Operation Date: 06/21/25 12:55 Proposed Procedures p Left Shoulder Total Shoulder Arthroplasty, Distal Clavicle Excision, Biceps Tenodesis, Rotator cuff Repair with [employer] - Soren Hernandez MD Height/Weight Height: 5 ft 10 in Weight: 116.9 kg Allergies Allergy/AdvReac Type Severity Reaction Status Date / Time No Known Allergies Allergy Verified 01/07/24 13:30 Medications Home Medications Medication Instructions Recorded Confirmed Last Taken atorvastatin 10 mg tablet (Lipitor) 10 mg PO QAM 08/19/18 05/31/25 10/13/22 07:00 carvedilol 6.25 mg tablet 6.25 mg PO BID 08/19/18 05/31/25 10/13/22 07:00 lisinopril 5 mg tablet 5 mg PO QAM 08/19/18 05/31/25 10/12/22 09:00 metformin 1,000 mg tablet 1,000 mg PO BID 08/19/18 05/31/25 10/12/22 09:00 acetaminophen 500 mg capsule 500 - 1,000 mg PO QID PRN Pain 05/31/25 05/31/25 Unknown fiber 4 cap PO DAILY 05/31/25 05/31/25 Unknown finasteride 5 mg tablet 5 mg PO QAM 05/31/25 05/31/25 Unknown tamsulosin 0.4 mg capsule 0.4 mg PO QAM 05/31/25 05/31/25 Unknown Past Medical History Medical History Anemia Per records, patient denies BPH (benign prostatic hyperplasia) Cardiomyopathy Occurred in early No longer following with Cardiology Per PCP records LVEF 30-35%- improved to 55% (per ECHO 02/2013) Diabetes mellitus, type 2 Oral H/O methicillin resistant Staphylococcus aureus Per patient was cleared via nasal swabs 2008 [facility] Hearing deficit History of COVID-19 07/2022 ([facility] PCR) > head cold/headache (resolved) History of herpes zoster No recent issues Hx of hepatitis Hx (childhood) Hyperlipidemia Hypertension Lumbar stenosis with neurogenic claudication Obesity Sciatic nerve pain Exercise / Class Metabolic Activity II 4-5 Yardwork/Stairs/Walk up hill (one flight of stairs- no chest pain or SOB ) Past Family History Family History Mother Family history of diabetes mellitus Other No family history of adverse response to anesthesia Past Surgical History Surgical History Adverse effect of anesthesia Urinary Retention History of amputation of finger of left hand History of ankle surgery Right History of appendectomy History of cardiac cath 2008 (2/2 abnormal stress test) > no stents History of cataract surgery Unilateral - unsure of side History of lumbar surgery L3-S1 decompression/fusion (10/13/2022): Grade 2 view, MAC#3, ETT 7.5 at [facility] History of repair of rotator cuff Right History of tonsillectomy History of tooth extraction Upper Partial History of total knee replacement Bilateral Hx of colonoscopy 2021 Hx of shoulder replacement Right TSA (10/20/18): Grade 2 view, MAC#4, ETT 7.5 + PNB at [facility] Status post insertion of spinal cord stimulator [employer] advised to bring Remote to PAT/DOS for 06/21/25 Past Anesthesia History No Hx of Anesthesia Complications (with exception to post op urinary retention (currently on meds and has not had issues with subsequent surgeries)) and No Family Hx of Anesthesia Complications History of PONV No Hx of PONV and No Hx of Motion Sickness Social History Smoking Status: Never smoker Do You Dip or Chew Tobacco: No (quit- around 2014- light tobacco use ) Hx Alcohol Use: Yes Alcohol type: beer alcohol intake frequency: a few times a month Hx Substance Use: No substance use type: does not use Review of Systems - Hx of snoring- no hx of sleep study Patient denies chest pain, shortness of breath, dyspnea on exertion, reflux, cough, wheezing, palpitations. No hx of seizures, stroke, ID. No hx of blood clots or blood transfusions Physical Exam Vital Signs Vitals/physical exam performed at PAT visit 06/07/25 (performed by Tara Cunha PA-C) Vital Signs BP 130/78 P 83 TEMP 97.9 SP02 95%RA RESP 16 Physical Full cervical extension range of motion. Full TMJ range of motion. TMD 3 finger breaths Mallampati Score III Lungs: clear throughout to auscultation Cardiac: regular rate and rhythm, no murmurs noted Spine: normal Carotid arteries: negative bruit Extremities: no LE edema Lab Results Anesthesia Preop Results Results Anesthesia Widget: WBC 5.90 K/ul (4.8-10.8) 06/07/25 Hgb 11.8 g/dL (14.0-18.0) L 06/07/25 Hct 36.2 % (42.0-52.0) L 06/07/25 Plt 281 K/uL (130-400) 06/07/25 Na 139 mmol/L (136-145) 06/07/25 K 3.9 mmol/L (3.5-5.1) 06/07/25 Cl 105 mmol/L (98-107) 06/07/25 CO2 25 mmol/L (21-32) 06/07/25 BUN 18 mg/dl (6-23) 06/07/25 Creat 0.93 mg/dl (0.6-1.4) 06/07/25 Glucose Level 113 mg/dl (70-99(Fasting)) H 06/07/25 PT 11.3 Seconds (9.0-12.0) 06/07/25 PTT 28 Seconds (21-31) 06/07/25 INR 1.1 (0.9-1.1) 06/07/25 HA1c 6.1 % (4.5-5.6) H 06/07/25 Urine Color Yellow 06/07/25 Urine Appearance Clear (Clear) 06/07/25 Urine pH 6.0 (4.5-7.5) 06/07/25 Urine Specific [place] 1.013 (1.000-1.030) 06/07/25 Urine Protein Negative (Negative) 06/07/25 Urine Glucose (UA) Negative (Negative) 06/07/25 Urine Ketones Negative (Negative) 06/07/25 Urine Blood Negative (Negative) 06/07/25 Urine Nitrite Negative (Negative) 06/07/25 Urine Bilirubin Negative (Negative) 06/07/25 Urine Urobilinogen Negative (Negative) 06/07/25 Urine Leukocyte Esterase Negative (Negative) 06/07/25 Blood Type A Positive 06/07/25 Antibody Screen NEGATIVE 06/07/25 Testing Electrocardiogram Date: 06/07/25 SR with PACs in a pattern of bigeminy at 75bpm Otherwise normal EKG per cardio When compared to EKG from December 29, 2024- no significant change was found per cardio (EKGs without significant change since at least 2018 per cardio, patient will be seeing PCP for preop evaluation- discussed with Dr. Smith- patient can proceed as scheduled if deemed acceptable by PCP) Chest X-Ray Date: 12/29/24 Findings: + NAD FINDINGS: Heart size and pulmonary vasculature are normal. Stable mild aortic tortuosity. Stable scoliosis. No effusion or consolidation
--- NOTE | 2025-06-19 16:00 | History & Physical Report ---
Date of Service June 19, 2025 Assessment & Plan (1) Osteoarthritis of left glenohumeral joint: Plan: Left shoulder end-stage glenohumeral osteoarthritis and symptomatic AC joint osteoarthritis. Plan is to proceed with a simplicity stemless total shoulder arthroplasty with distal clavicle excision. Will likely require biceps tenodesis. (2) Osteoarthritis of left acromioclavicular joint: History of Present Illness Chief Complaint: Chronic left shoulder pain and stiffness Primary Care Provider: Lucian Torres DO 69-year-old male with chronic disabling left shoulder pain due to osteoarthritis. History of successful right anatomic shoulder replacement. Patient denies headaches, sweats, fevers, chills, double vision, blurred vision, cough, sore throat, dysphagia, chest pain, sob, wheezing, n/v/d/c, numbness, tingling, fatigue, urinary symptoms, mood disorders. ROS positive for numbness left foot, low back pain with spinal stimulator, placed December 2024 ,jaundice as a child. Allergies Allergy/AdvReac Type Severity Reaction Status Date / Time No Known Allergies Allergy Verified 01/07/24 13:30 Home Medications Medication Instructions Recorded Confirmed Type atorvastatin 10 mg tablet (Lipitor) 10 mg PO QAM 08/19/18 05/31/25 History carvedilol 6.25 mg tablet 6.25 mg PO BID 08/19/18 05/31/25 History lisinopril 5 mg tablet 5 mg PO QAM 08/19/18 05/31/25 History metformin 1,000 mg tablet 1,000 mg PO BID 08/19/18 05/31/25 History acetaminophen 500 mg capsule 500 - 1,000 mg PO QID PRN Pain 05/31/25 05/31/25 History fiber 4 cap PO DAILY 05/31/25 05/31/25 History finasteride 5 mg tablet 5 mg PO QAM 05/31/25 05/31/25 History tamsulosin 0.4 mg capsule 0.4 mg PO QAM 05/31/25 05/31/25 History Past Med/Surg History Problem List (Updated 06/19/25 @ 15:59 by Soren Hernandez MD) Osteoarthritis of left acromioclavicular joint Osteoarthritis of left glenohumeral joint Neurogenic claudication due to lumbar spinal stenosis Arthritis (Acute) BPH (benign prostatic hyperplasia) Elevated BUN Urinary retention Obesity Hypertension Hyperlipidemia Type II diabetes mellitus DJD of right shoulder Encounter for pre-operative examination Medical History Lumbar stenosis with neurogenic claudication Anemia Per records, patient denies Cardiomyopathy Occurred in early No longer following with Cardiology Per PCP records LVEF 30-35%- improved to 55% (per ECHO 02/2013) BPH (benign prostatic hyperplasia) History of herpes zoster No recent issues History of COVID-19 07/2022 ([facility] PCR) > head cold/headache (resolved) Sciatic nerve pain Hx of hepatitis Hx (childhood) H/O methicillin resistant Staphylococcus aureus Per patient was cleared via nasal swabs 2008 [facility] Obesity Diabetes mellitus, type 2 Oral Hearing deficit Hypertension Hyperlipidemia Surgical History Adverse effect of anesthesia Urinary Retention History of tooth extraction Upper Partial History of cataract surgery Unilateral - unsure of side Status post insertion of spinal cord stimulator [employer] advised to bring Remote to PAT/DOS for 06/21/25 History of lumbar surgery L3-S1 decompression/fusion (10/13/2022): Grade 2 view, MAC#3, ETT 7.5 at [facility] Hx of colonoscopy 2021 Hx of shoulder replacement Right TSA (10/20/18): Grade 2 view, MAC#4, ETT 7.5 + PNB at [facility] History of amputation of finger of left hand History of repair of rotator cuff Right History of ankle surgery Right History of total knee replacement Bilateral History of appendectomy History of tonsillectomy History of cardiac cath 2008 (2/2 abnormal stress test) > no stents Family History Mother Family history of diabetes mellitus Other No family history of adverse response to anesthesia Social History Smoking Status: Never smoker Second Hand Exposure: No; Do You Dip or Chew Tobacco: No (quit- around 2014- light tobacco use ); Tobacco Cessation Education Requested by Patient: No Hx Alcohol Use: Yes Alcohol type: beer Hx Substance Use: No Preferred Language: Spanish Communication Ability: Effective Advisor To Command In [employer] Required: No Beliefs That Will Affect Care: None marital status: Current Living Situation: Spouse Other Information That Helps Us Care for You: No Feels Safe at Home: Yes Safety Concerns: Feels Safe At This Time Assistive Devices: Glasses and Other Assistive Devices Comment: Upper Partial Review of Systems All systems reviewed & are unremarkable except as noted in HPI & below Physical Exam Constitutional: WD/WN, vitals as above Respiratory: normal respiratory effort; no respiratory distress Cardiovascular: Rate/Rhythm: regular rate and regular rhythm Musculoskeletal: Left shoulder painful range of motion [id number] crepitation 140 degrees flexion, 80 degrees abduction, 40 degrees internal and external rotation, internal rotation L3. Distal circulation sensorimotor exam intact. Right shoulder 155 degrees flexion and 120 degrees abduction pain free range of motion normal strength. Skin: no rashes, warm and dry Neurologic: normal touch/pain/proprioception Psychiatric: A+Ox3, euthymic affect Results & Data Diagnostic Findings Radiographs left shoulder demonstrate [id number] in the glenohumeral joint with B2 glenoid and minimal posterior subluxation. There is osteoarthritis of the acromioclavicular joint with joint space narrowing and calcifications of the superior joint capsule moderately advanced arthritis.
[2025-06-21] MEDS: ACETAMINOPHEN 500 MG TAB PO SCH ×2 (05:53→14:09)
[2025-06-21] MEDS: CeleBREX 200 MG CAP PO SCH (05:54)
[2025-06-21] MEDS: LR 60ML/HR IV SCH (05:54)
[2025-06-21] MEDS: LR 15ML/HR IV SCH (05:54)
[2025-06-21] MEDS: GABAPENTIN 300 MG CAP PO SCH (05:54)
[2025-06-21] MEDS: FAMOTIDINE 20 MG TAB PO SCH (05:54)
[2025-06-21] MEDS: METOCLOPRAMIDE HCL 10 MG TABLET PO SCH (05:54)
[2025-06-21] MEDS ORDERED: BUPIVACAINE 0.5 % 5 MG/1 ML PF 10ML VIAL ONE (06:29)
[2025-06-21] MEDS ORDERED: LIDOCAINE 2% 2 ML VIAL/AMP(20MG/ML) INFIL ONE (06:43)
[2025-06-21] MEDS ORDERED: ROCURONIUM BROMIDE 10 MG/ML 5 ML VIAL IV ONE (06:43)
[2025-06-21] MEDS ORDERED: PROPOFOL IV EMULSION 10 MG/ML 20 ML VIAL IV ONE (06:43)
[2025-06-21] MEDS ORDERED: SUGAMMADEX SODIUM 200 MG/2 ML VIAL IV ONE (06:44)
[2025-06-21] MEDS ORDERED: MIDAZOLAM HCL 1 MG/ML 2ML VIAL ONE (06:44)
[2025-06-21] MEDS ORDERED: PHENYLEPHRINE HCL 10 MG/ML VIAL ONE ×2 (06:47)
[2025-06-21] MEDS ORDERED: ATROPINE SULFATE 0.1 MG/ML 10ML SYR IV PRN (07:14)
[2025-06-21] MEDS ORDERED: ONDANSETRON INJ 2 MG/ML 2 ML VIAL IV PRN ×2 (07:14→13:04)
[2025-06-21] MEDS ORDERED: PROMETHAZINE HCL 6.25 MG in SODIUM CHLORIDE 0.9% 50 ML IV PRN (07:14)
[2025-06-21] MEDS: TRANEXAMIC ACID 1,000 MG **IV Pre-op IV SCH (07:17)
--- NOTE | 2025-06-21 07:18 | History & Physical Bridge Note ---
Date of Service June 21, 2025 History & Physical Bridge Note I have examined the patient, reviewed the History & Physical and in the interval since the performance of the History & Physical I have noted the following changes of clinical significance: no changes noted
[2025-06-21] MEDS: EpINEphrine HCL INJ 1 MG/ML 1ML SYRINGE IR ONE (08:31)
--- NOTE | 2025-06-21 11:37 | Operative Report ---
Post Operative Report Pre & Post Diagnosis Operation Date: 06/21/25 07:15 Pre-Op Diagnosis: Osteoarthritis of Left Glenohumeral Joint with bone erosion glenoid, acromioclavicular joint osteoarthritis contributing to impingement, interstitial tear rotator cuff, biceps tendinopathy. Post-Op Diagnosis: Osteoarthritis of Left Glenohumeral Joint with bone erosion glenoid, acromioclavicular joint osteoarthritis contributing to impingement, interstitial tear rotator cuff, biceps tendinopathy. I identified the patient and participated in the time-out.: Yes Procedure Operation Date: 06/21/25 07:15 Actual Procedures p Left Shoulder: Total Shoulder Arthroplasty, Distal Clavicle Excision, Biceps Tenodesis, Rotator Cuff Repair with Regeneten bio inductive type I collagen implant(Left) - Soren Hernandez MD Surgeon Soren Hernandez MD Medical Research Associate Supa SOARES Estimated Blood Loss 200 Findings Consistent with Post-Op Diagnosis Specimens Humeral head cut Drains 2 Hemovac Anesthesia Type General Regional Complications none Disposition Disposition: Recovery Room Indications 69-year-old male with chronic progressive osteoarthritis left shoulder with decreased range of motion and pain and disability. Radiographically patient has bone erosion glenoid with B2 glenoid. MRI demonstrates biceps tendinopathy inflammation AC joint with end-stage AC joint osteoarthritis with an inferior spur that is large causing impingement and supraspinatus interstitial tear and tendinopathy without full-thickness rotator cuff tear. Description of Procedure Patient was taken to the operating room anesthetized under regional block and general anesthetic. Patient was placed in a 40 degree beach chair position with a foam headrest protective eyewear all extremities padded teds and SCDs were placed. A towel roll was placed on the medial border of the scapula of the left upper extremity. The arm was examined and range of motion demonstrated 130 degrees flexion with 70 degrees abduction and 30 degrees external rotation. An anterior deltopectoral approach was performed. Longitudinal incision was made in deltopectoral interval. Skin incised sharply and subcutaneous flaps elevated. The deltopectoral interval was identified. The cephalic vein demonstrated large normal-appearing vein. The cephalic vein was retracted laterally with the deltoid. The upper centimeter of the pectoralis was released for inferior exposure. Biceps tendon demonstrated thickened chronic tenosynovitis along the entire biceps with some widening and tendinopathy intra- articularly. The biceps was tenodesed to the pectoralis tendon using #2 FiberWire dlzumo-cv-hyquu sutures. Proximal biceps was resected. Rotator cuff findings demonstrated intact rotator cuff with bursitis and some softening of the posterior supraspinatus with no full-thickness tears. The circumflex vessels were tied off with silk ties and divided laterally. The subscapularis muscle fibers were split at the level of circumflex vessels and released off the inferior capsule with a Kitner elevator and then a blunt Hohmann retractor was placed protect the axillary nerve. The rotator interval was released down to the level of the glenoid. The subscapularis tendon was taken down with a transtendinous incision leaving a cuff of tissue for repair on the lesser tuberosity. The humeral head findings demonstrated eburnated bone with large osteophytes from anterior to posterior. The osteophytes were resected using an artist chisel and rongeur. The inferior capsule was released off the bone subperiosteally using a Cai elevator. A #1 Vicryl traction suture was placed into the free edge of the subscapularis tendon. A Fukuda retractor was placed into the joint. Capsule was released with Phoenix scissors down to the glenoid and off of the anterior glenoid to the rotator interval which was released to meet the capsular release creating a 360 degree release of subscapularis tendon. An anterior Bankart retractor was placed. The glenoid and labral findings demonstrated circumferential labral tearing and 100% eburnation of the glenoid with some bone loss and B2 glenoid wear pattern. An anterior-inferior and posterior inferior capsule release was performed electrocautery on bone and a Cai elevator. The axillary nerve was protected inferiorly with the blunt Hohmann. Attention was taken back to the humeral head. Humeral head was exposed with extension and external rotation. The oscillating saw was used to make an anatomic neck cut removing the articular surface. All the circumferential remaining osteophytes were trimmed with a rongeur. The humerus was sized for a #2 nucleus and a 52 humeral head. The bone was assessed with a thumb press test and there was solid cancellous bone. The guide for the nucleus was placed centrally and then the guidepin was placed. The surface reamer was used followed by the central drill for the nucleus. The trial nucleus was inserted and the cut protector was placed. The humerus was retracted posterior to the glenoid . A Tornier retractor ,Hohmann retractors as well as an anterior Bankart retractor were placed. The glenoid was fully exposed. The Tornier Cortiloc glenoid was used. The medium with 15 degree posterior augment size was chosen based on blueprint CT scanning and custom guide was generated. The guide was placed in position and fit well. The central guidepin was inserted and the drill hole for the augment reamer was drilled. This was followed by the reamers for the glenoid followed by drilling of the peg holes and subsequently widening the central hole for the central post. After irrigation the trial reduction was performed with stable fixation. The trial removed and the glenoid copiously irrigated with pulsed saline solution. The drill holes were packed with epinephrine-soaked tampons. The Palacos G cement was vacuum mixed. The Tornier Cortiloc left 40 radius medium polyethylene glenoid component with a 15 degree augment was then cemented in position after drying the glenoid after removal of the tampons. Fixation was excellent. All excess cement was cleared. When the cement cured we moved onto removing the cut protector doing a trial reduction with a 52 x 21 mm soft tissue balancing humeral head trial. Stability was assessed and was stable. Soft tissue tension on the subscapularis tendon was satisfactory. The trial components of the humeral head were removed and the 3 drill holes were made in the harder bone in the biceps groove area and transosseous #5 FiberWire sutures were placed. Then the humeral cut surface was reexposed with retractors and after irrigation the size 2 nucleus was impacted leaving it slightly proud until the 52 x 21 soft t issue balancing simplicity humeral head was placed into the nucleus and then both were impacted into the humerus with a tight press-fit. The humerus was reduced to the glenoid. The stability was verified. Joint was irrigated with Irrisept and pulsatile lavage saline solution. The subscapularis tendon was repaired in 2 pnpjia-rd-jrdok #2 FiberWire sutures. Lateral row fixation was performed with interrupted eiivuh-xo-qhzcw #2 FiberWire sutures and rotator interval was closed with #2 FiberWire sutures. Range of motion demonstrated 140 degrees forward flexion and 90 degrees abduction and 45 degrees external rotation without tension on repair. Rotator cuff was then repaired with a Regeneten bio inductive collagen implant large sized placed over the interstitial tear and sutured to the rotator cuff surface with interrupted 2-0 Vicryl sutures. The pectoralis was repaired with mcxyme-ds-epilo #2 FiberWire sutures placing sutures back through the biceps tendon to reinforce the tenodesi s. Attention was then taken to the distal clavicle excision. A transverse incision was made over the distal clavicle. The skin was incised sharply and deep layer of subcutaneous fat was divided down to the fascia and bleeders were cauterized. A transverse incision was made over the AC joint exposing 1 cm of the distal clavicle. Nettles elevator was used and electrocautery and baby Hohmann's placed. The AC joint was advanced arthritic with a substantial inferior spur. 1 cm of distal clavicle was removed using an oscillating saw. The joint soft tissue was debrided. The wound was irrigated. Irrisept irrigation was used. A #1 Vicryl ripstop suture was placed along the deltoid that was taken down off of the bone. Then the deltotrapezial fascia was repaired anatomically with zjnont-wp-cdguw #2 FiberWire sutures with a secure closure. The subcutaneous tissues were closed with 2-0 Vicryl sutures and the skin was closed with surgical nathalie. The deltopectoral wound was irrigated again and 2 Hemovac drains were placed. The deltopectoral interval was repaired with njqvon-rk-qyvnz #1 Vicryl sutures. The subcutaneous tissue was repaired with 2-0 Vicryl sutures and the skin was closed with surgical nathalie. Sterile dressings were applied including Silverlon bandage over main incision and a sling immobilizer. The patient tolerated the procedure well. Supa SOARES acted as office support assistant throughout the procedure. He functioned as office support assistant assisting in all aspects of the procedure including patient positioning prepping draping, arm positioning, soft tissue retraction,, instrument management, subcutaneous and skin closure and postop care the patient as well. Im ordering collagen sheets as a primary dressing and bordered super absorbent for secondary dressings for the wound resulting from this surgery. Collagen is being utilized to encourage the growth of blood vessels and granulation tissue. The collagen will also speed up the wound healing process, increase skin tensile strength at the surgery site and lessen the chance of a wound dehiscence, help prevent infection, and reduce the appearance of scarring. The silicone secondary dressings will protect the wound and help keep it clean and minimize that chances for infection. I believe that this treatment protocol is medically necessary to help facilitate the best outcome possible for my patient. I attest to the content of the Intraoperative Record and any orders documented therein. Any exceptions are noted below.
--- NOTE | 2025-06-21 12:35 | XRay Report ---
XR shoulder LT min 2V routine CLINICAL HISTORY: Post shoulder surgery COMPARISON: None FINDINGS: Left shoulder prosthesis shows no hardware complication. Postoperative drain is present. S kin nathalie are present. There is expected soft tissue gas. IMPRESSION: Unremarkable postoperative exam. ACT 112: Negative or not required by law. Electronically signed by: Duglas Nicolas M.D. 06/21/2025 12:34 PM
[2025-06-21] MEDS ORDERED: KETOROLAC TROMETHAMINE 15 MG/ML VIAL IV PRN (13:04)
[2025-06-21] MEDS ORDERED: diphenhydrAMINE Capsule 25 MG CAP PO PRN (13:04)
[2025-06-21] MEDS ORDERED: NALOXONE HCL 0.4 MG/1 ML VIAL/CARP IV PRN (13:04)
[2025-06-21] MEDS ORDERED: METOCLOPRAMIDE HCL INJ 5 MG/ML 2 ML VIAL IV PRN (13:04)
[2025-06-21] MEDS ORDERED: ALUMINUM/MAGNESIUM SUSP 30 ML UDC PO PRN (13:04)
[2025-06-21] MEDS ORDERED: PHARMACY GLYCEMIC MGMT CONSULT PRN (13:04)
[2025-06-21] MEDS ORDERED: MAGNESIUM HYDROXIDE SUSP 30 ML UDC PO PRN (13:04)
[2025-06-21] MEDS: BUPIVACAINE LIPOSOME 1.3% 133 MG/10 ML VIAL ONE (13:05)
--- NOTE | 2025-06-21 13:17 | Anesthesiology Progress Note ---
Date of Service June 21, 2025 Anesthesia Post Procedure Vital Signs Vital Signs: Temp Pulse Pulse Resp BP Pulse Ox O2 Del Method 06/21/25 12:50 71 20 96/71 L 94 Room Air 06/21/25 12:45 97/69 L 06/21/25 12:40 70 14 91/60 L 94 Room Air 06/21/25 12:30 70 18 100/72 94 Room Air 06/21/25 12:20 67 16 91/63 L 94 Room Air 06/21/25 12:10 71 18 91/62 L 92 Room Air 06/21/25 12:00 69 18 86/61 L 93 Room Air 06/21/25 11:50 36.5 C 69 18 98/61 L 93 Room Air 06/21/25 11:40 72 18 98/64 L 96 Oxymask 06/21/25 11:30 68 22 93/66 L 98 Oxymask 06/21/25 11:20 36.6 C 67 16 102/67 96 Oxymask 06/21/25 05:35 36.5 C 85 20 134/89 95 Room Air O2 Flow Rate 06/21/25 12:50 06/21/25 12:45 06/21/25 12:40 06/21/25 12:30 06/21/25 12:20 06/21/25 12:10 06/21/25 12:00 06/21/25 11:50 06/21/25 11:40 2 06/21/25 11:30 7 06/21/25 11:20 7 06/21/25 05:35 Pain Intensity Left Axilla: Pain Intensity: 2 Transfer of Care Handoff Completed per policy Notes Mental Status: alert / awake / arousable Patient Amnestic to Procedure: Yes Nausea / Vomiting: adequately controlled Pain: adequately controlled Airway Patency, RR, SpO2: stable & adequate BP & HR: stable & adequate Hydration State: stable & adequate Anesthetic Complications: no major complications apparent
[2025-06-21] MEDS: DOCUSATE SODIUM 100 MG CAP PO SCH (13:28)
[2025-06-21] MEDS: SODIUM CHLORIDE 0.9% 1,000 ML IV SCH (13:28)
[2025-06-21] MEDS ORDERED: GLUCOSE 10 TAB/TUBE PO PRN (13:30)
[2025-06-21] MEDS ORDERED: GLUCOSE 40% GEL 15 GM TUBE PO PRN (13:30)
[2025-06-21] MEDS ORDERED: DEXTROSE 50% 50 ML SYRINGE IV PRN (13:30)
[2025-06-21] MEDS ORDERED: CARBOHYDRATES FOR HYPOGLYCEMIA PO PRN (13:30)
[2025-06-21] MEDS ORDERED: GLUCAGON FOR INJ 1 MG VIAL SQ PRN (13:30)
[2025-06-21] MEDS: ATORVASTATIN 10 MG TAB PO SCH (13:34)
[2025-06-21] MEDS: FINASTERIDE 5 MG TAB PO SCH (13:35)
[2025-06-21] MEDS: ASPIRIN 81 MG ECTAB PO SCH (13:36)
[2025-06-21] MEDS: MULTIVITAMIN TAB PO SCH (13:36)
[2025-06-21] MEDS: TAMSULOSIN HCL 0.4 MG CAP PO SCH (13:36)
[2025-06-21] MEDS: CALCIUM POLYCARBOPHIL 625MG TAB PO SCH (13:37)
[2025-06-21] MEDS: INSULIN ASPART PER UNIT CHARGE SC SCH (13:39)
--- NOTE | 2025-06-21 13:47 | Pharmacy Report ---
Pharmacy Glycemic Short Note 2 - Date of Service June 21, 2025 - Glycemic Short BSG Results (Last 24 hours): 06/21/25 06/21/25 05:33 11:32 POC Glucose 124 H 125 H OUTPATIENT ANTIDIABETIC REGIMEN: * Metformin 1000 mg PO BIDM HbA1c: 6.1% (06/07/25) ASSESSMENT: * LINO is a 69 year old male POD #0 s/p left shoulder arthroplasty * No steroids in the OR, but dexamethasone 10 mg IV x 1 ordered for tomorrow morning * Preop blood sugar of 124 mg/dL and postop blood sugar of 125 mg/dL * No need for aggressive insulin dosing at this time PLAN FOR INPATIENT GLYCEMIC CONTROL: * Hold outpatient oral diabetes medications * Basal insulin * hold * Bolus insulin * NovoLog per scale ACHS or Q6hrs while NPO * Goal Range: Low 110 mg/dL - High 140 mg/dL * Correction Factor: 25 mg/dL/unit * Nutritional / Prandial insulin per carb ratio of 1 unit per 9 grams CHO consumed
[2025-06-21] MEDS: TRANEXAMIC ACID / 0.7% NACL 1,000 MG/100 ML BAG IV SCH (14:09)
--- NOTE | 2025-06-21 14:11 | Consultation ---
Date of Consultation June 21, 2025 Assessment & Plan (1) Status post total shoulder arthroplasty: Post op day# 0 S/P left total shoulder by Dr David JAFFE #200ml Pain management per ortho Wound management per ortho PT/OT as appropriate DVT prophylaxis per ortho Incentive spirometry Monitor H&H for acute blood loss anemia, Preop Hgb: 11.8 # HTN Hold Lisinopril and recheck tomorrow Continue carvedilol #DM II A1c: 6.1 on 06/07/25 Hold metformin Glycemic pharmacist managing. Appreciate glycemic management #HLD Continue atorvastatin #H/O Cardiomyopathy Reported improved EF per pt Continue carvedilol, hold lisinopril for now Follows with Dr Martinez, cardiology DVT Prophylaxis ASA BID per ortho Disposition per primary service Follows with Dr Lucian Torres for routine care Pt was seen and care coordinated with Dr Villalpando. See addendum I spent a total of 45 minutes reviewing notes, outpatient records, labs, medication, coordinating, documenting and providing care for this patient excluding time spent in the performance of separately billed services and excluding time spent by another provider/QHP. Supervising Physician Co-Signing Physician Notes Attending addendum: The patient was seen and examined in medical floor in presence of the He is status post left total shoulder arthroplasty Complains to minimal pain at the left shoulder but otherwise no significant symptoms On examination Sitting at the edge of the bed without any acute distress Remains hemodynamically stable with a blood pressure on the lower side at 106/58 Chest was clear to auscultate bilaterally HeartS1-S2, regular Abdomendistended, soft and bowel sound present Extremitiestrace edema bilaterally CNSalert, awake and oriented x 3 and no focal sensory or motor deficit appreciated His preop labs, EKG and imaging studies reviewed He is status post left total shoulder arthroplasty and doing well following the procedure His other significant medical conditions remained stable as above Agree with assessment and plan as outlined above by Julianna Encinas PA-C and take the full responsibility of care in the hospital Total time taken to see the patient, examining him, reviewing chart and plan of care was [address] Eber villalpando History of Present Illness Requesting Physician: Dr Hernandez Reason for Consultation: Post op medical management Attending Physician: Soren Hernandez MD History of Present Illness Patient is 69-year-old male with PMH HTN, HLD, history cardiomyopathy with recovered EF per patient, DM II, obesity seen in medical consultation s/p L total shoulder arthroplasty today by Dr Hernandez. Post op patient reports is doing well. Reports LUE still with numbness, is able to start moving his fingers. Has urinated post op. Last BM 2 days ago. Denies fever/chills, diaphoresis, N/V/D, EMMANUEL, dizziness, CP, SOB, palpitations, cough, sore throat, rhinorrhea, abdominal pain, extremity edema, rashes, urinary symptoms. Allergies Allergy/AdvReac Type Severity Reaction Status Date / Time No Known Allergies Allergy Verified 06/21/25 05:38 Home Medications Medication Instructions Recorded Confirmed Type atorvastatin 10 mg tablet (Lipitor) 10 mg PO QAM 08/19/18 06/21/25 History carvedilol 6.25 mg tablet 6.25 mg PO BID 08/19/18 06/21/25 History lisinopril 5 mg tablet 5 mg PO QAM 08/19/18 06/21/25 History metformin 1,000 mg tablet 1,000 mg PO BID 08/19/18 06/21/25 History acetaminophen 500 mg capsule 500 - 1,000 mg PO QID PRN Pain 05/31/25 06/21/25 History fiber 4 cap PO DAILY 05/31/25 06/21/25 History finasteride 5 mg tablet 5 mg PO QAM 05/31/25 06/21/25 History tamsulosin 0.4 mg capsule 0.4 mg PO QAM 05/31/25 06/21/25 History acetaminophen 500 mg tablet 1,000 mg (2 x 500 mg) PO Q8H #90 06/20/25 06/21/25 Rx (Tylenol Extra Strength) tabs aspirin 81 mg tablet,delayed 81 mg PO BID #60 tabs 06/20/25 06/21/25 Rx release cefadroxil 500 mg capsule 500 mg PO Q12H #28 caps 06/20/25 06/21/25 Rx celecoxib 200 mg capsule (Celebrex) 200 mg PO Q12H #60 caps 06/20/25 06/21/25 Rx oxycodone 5 mg tablet 5 mg PO Q4H PRN pain #30 tabs 06/20/25 06/21/25 Rx Patient History Medical History Lumbar stenosis with neurogenic claudication Anemia Per records, patient denies Cardiomyopathy Occurred in early No longer following with Cardiology Per PCP records LVEF 30-35%- improved to 55% (per ECHO 02/2013) BPH (benign prostatic hyperplasia) History of herpes zoster No recent issues History of COVID-19 07/2022 ([facility] PCR) > head cold/headache (resolved) Sciatic nerve pain Hx of hepatitis Hx (childhood) H/O methicillin resistant Staphylococcus aureus Per patient was cleared via nasal swabs 2008 [facility] Obesity Diabetes mellitus, type 2 Oral Hearing deficit Hypertension Hyperlipidemia Surgical History Adverse effect of anesthesia Urinary Retention History of tooth extraction Upper Partial History of cataract surgery Unilateral - unsure of side Status post insertion of spinal cord stimulator [employer] advised to bring Remote to PAT/DOS for 06/21/25 History of lumbar surgery L3-S1 decompression/fusion (10/13/2022): Grade 2 view, MAC#3, ETT 7.5 at [facility] Hx of colonoscopy 2021 Hx of shoulder replacement Right TSA (10/20/18): Grade 2 view, MAC#4, ETT 7.5 + PNB at [facility] Left TSA- 06/21/25. Dr Hernandez at [facility] History of amputation of finger of left hand History of repair of rotator cuff Right History of ankle surgery Right History of total knee replacement Bilateral History of appendectomy History of tonsillectomy History of cardiac cath 2008 (2/2 abnormal stress test) > no stents Family History Mother Family history of diabetes mellitus Other No family history of adverse response to anesthesia Social History Smoking Status: Never smoker Second Hand Exposure: No; Do You Dip or Chew Tobacco: No (quit- around 2014- light tobacco use ); Tobacco Cessation Education Requested by Patient: No Hx Alcohol Use: Yes Alcohol type: beer Hx Substance Use: No Preferred Language: Wallisian Communication Ability: Effective Slag Mixer Required: No Beliefs That Will Affect Care: None marital status: Current Living Situation: Spouse Other Information That Helps Us Care for You: No Feels Safe at Home: Yes Safety Concerns: Feels Safe At This Time Assistive Devices: Glasses and Other Assistive Devices Comment: Upper Partial Review of Systems Review of Systems: All systems reviewed & are unremarkable except as noted in HPI & below Physical Exam Physical Exam: General: no distress, overweight elderly male Head: normocephalic, atraumatic Eyes: conjunctiva non-injected, anicteric ENT: normal inspection external ears, nose, mucous membranes moist Neck: supple, trachea midline Lungs: clear, no respiratory distress, no wheezing/rhonchi/rales CV: RRR, trace pretibial edema Abd: normal BS, soft, non-tender Ext: no cyanosis, no calf tenderness; LUE: +surgical dressing in place and dry, +hemovac in place with serosanguineous drainage, able to actively move fingers, sensation to light touch intact Neuro: A&O x 3, no focal deficits noted, normal affect Skin: warm, dry Results & Data Vital Signs (Past 12 Hours) Vital Signs Temp Pulse Pulse Resp BP Pulse Ox O2 Del Method 06/21/25 13:04 36.6 C 73 12 116/71 91 Room Air 06/21/25 12:50 71 20 96/71 L 94 Room Air 06/21/25 12:45 97/69 L 06/21/25 12:40 70 14 91/60 L 94 Room Air 06/21/25 12:30 70 18 100/72 94 Room Air 06/21/25 12:20 67 16 91/63 L 94 Room Air 06/21/25 12:10 71 18 91/62 L 92 Room Air 06/21/25 12:00 69 18 86/61 L 93 Room Air 06/21/25 11:50 36.5 C 69 18 98/61 L 93 Room Air 06/21/25 11:40 72 18 98/64 L 96 Oxymask 06/21/25 11:30 68 22 93/66 L 98 Oxymask 06/21/25 11:20 36.6 C 67 16 102/67 96 Oxymask 06/21/25 05:35 36.5 C 85 20 134/89 95 Room Air O2 Flow Rate 06/21/25 13:04 06/21/25 12:50 06/21/25 12:45 06/21/25 12:40 06/21/25 12:30 06/21/25 12:20 06/21/25 12:10 06/21/25 12:00 06/21/25 11:50 06/21/25 11:40 2 06/21/25 11:30 7 06/21/25 11:20 7 06/21/25 05:35 Diagnostic Findings Shoulder X-Ray 06/21/25 07:40 XR shoulder LT min 2V routine CLINICAL HISTORY: Post shoulder surgery COMPARISON: None FINDINGS: Left shoulder prosthesis shows no hardware complication. Postoperative drain is present. Skin nathalie are present. There is expected soft tissue gas. IMPRESSION: Unremarkable postoperative exam. ACT 112: Negative or not required by law. Electronically signed by: Duglas Nicolas M.D. 06/21/2025 12:34 PM
[2025-06-21] MEDS: HYDROmorphone INJ 0.5 MG/0.5 ML SYR IV PRN (17:15)
[2025-06-21] MEDS: SENNA 8.6 MG TAB PO SCH (21:25)
[2025-06-21 23:49] VITALS: RESP 18; O2SAT 95
[2025-06-22 06:51] LABS: Hematocrit (blood only) 32.5 % (42.0-52.0); Hemoglobin 10.6 g/dL (14.0-18.0); Immature Granulocytes # (auto) 0.02 K/uL (0.01-0.20); Immature Granulocytes % (auto) 0.3 %; Mean Corpuscular Hemoglobin 27.3 pg (25.0-34.0); Mean Corpuscular Volume 83.8 fL (80.0-100.0); Platelet Count 236 K/uL (130-400); RDW Standard Deviation 44.9 fL (36.4-46.3); Red Blood Count 3.88 M/uL (4.70-6.10); White Blood Count 7.37 K/ul (4.8-10.8)
[2025-06-22 07:08] LABS: Anion Gap 9.0 (3-11); Blood Urea Nitrogen 20.0 mg/dl (6-23); Calcium 9.0 mg/dl (8.6-10.3); Carbon Dioxide 24.0 mmol/L (21-32); Chloride 104.0 mmol/L (98-107); Creatinine Clr Calc Pharmacy 82.3 ml/min; Glucose 145.0 mg/dl (70-99(Fasting)); Potassium 3.8 mmol/L (3.5-5.1); Sodium 137.0 mmol/L (136-145)
[2025-06-22 07:30] VITALS: BP 105/72; PULSE 87; TEMP 98.1
[2025-06-22] MEDS: dexAMETHasone 10 MG in SYRINGE 0 ML IV SCH (07:47)
[2025-06-22] MEDS: LANTUS PER UNIT CHARGE SC ONE (08:32)
--- NOTE | 2025-06-22 08:45 | Orthopedic Progress Note ---
Date of Service June 22, 2025 Assessment & Plan (1) Osteoarthritis of left glenohumeral joint: Plan: -POD #1 s/p left TSA with Dr. Hernandez -Patient doing well this morning, pain controlled on current regimen -NWB LUE, wear immobilizer/sling when not performing PT exercises -Hemovac drains to be removed prior to d/c -Continue Silverlon dressings x 7 days -Pain control as written -VTE ppx with ASA -Plan to discharge home today. Followup in the office in 12-14 days post-op as scheduled Admission and Anticipated Discharge Date Admission Date: June 21, 2025 Subjective POD #1 s/p left TSA. Patient did well overnight. He has been up and out of bed, able to ambulate down the halls a few times. Pain has been controlled on current regimen. No other acute complaints this morning. Looking forward to going home today. Physical Exam Physical Exam: Resting in bedside chair, no acute distress Musculoskeletal: LUE: Slimg immobilizer in place. Dressings clean, dry and intact. Hemovac with ~180 mL output, to be removed. Digits a bit edematous, mobile. Sensation and radial pulse intact Results & Data Vital Signs (Past 12 Hours) Vital Signs Temp Pulse Resp BP Pulse Ox O2 Del Method 06/22/25 07:29 36.7 C 87 18 105/72 95 Room Air 06/22/25 04:30 36.9 C 92 H 18 118/87 95 Room Air 06/21/25 23:05 36.9 C 86 18 109/70 95 Room Air
[2025-06-22] MEDS ORDERED: CALCIUM POLYCARBOPHIL 625MG TAB PO SCH (09:00)
--- NOTE | 2025-06-22 11:20 | Hospitalist Progress Note ---
Date of Service June 22, 2025 Assessment & Plan (1) Status post total shoulder arthroplasty: (2) Hypertension: (3) Type II diabetes mellitus: (4) Hyperlipidemia: Plan Patient's hypertension diabetes overall well-controlled. Status post shoulder surgery. Patient is anticipating discharge today. Would recommend he continue on his home medications at discharge Medically ready for discharge when discharged by his attending. Thank you for this consultation Admission and Anticipated Discharge Date Admission Date: June 21, 2025 Subjective Patient doing well postoperatively. Anticipating discharge. Pain is well- controlled. Physical Exam Physical Exam: Constitutional: Alert HEENT: Mucous membranes moist. Lungs: Clear to auscultation, decreased, no wheezes rales or rhonchi CV: S1-S2, regular Abdomen: Soft, nontender, nondistended Extremities: Trace lower extremity edema, left upper extremity in immobilizer Neuro: No focal deficits Psych: Cooperative, normal mood Results & Data Results & Data Vital Signs (Past 12 Hours) Vital Signs Temp Pulse Resp BP Pulse Ox O2 Del Method 06/22/25 07:29 36.7 C 87 18 105/72 95 Room Air 06/22/25 04:30 36.9 C 92 H 18 118/87 95 Room Air Diagnostic Findings Reviewed imaging, laboratory and diagnostic studies. Pertinent findings as below. WBC 7.3 Hemoglobin 10.6, stable Electrolytes stable Creatinine 1.05 Glucose 138
== END 2025-06-22 10:32 | disposition home health service (06) ==
LOC: ASU 05:16 → 3E 05:16